=== PATIENT | male | born 1955 | race Caucasian/White ===

== ENCOUNTER 2017-04-22 05:05 | Day surgery (SDC) | payer BC ==
[2017-04-21 12:47] VITALS: BMI 26.4
[2017-04-22 06:30] VITALS: TEMP 98
--- NOTE | 2017-04-22 07:56 | HP ---
Admitting History and Physical - Primary Care Physician PCP: Rosalio Vieira - Admission Chief Complaint: Nasal blockage History of Present Illness: Years of nasal congestion and sinusitis despite many meds and sprays. CT shows pansinusitis and Nasal polyps History Source: Patient, Medical Record Limitations to Obtaining History: No Limitations - Smoking History Smoking history: Current every day smoker Have you smoked in the past 12 months: Yes Aproximately how many cigarettes per day: 20 - Alcohol/Substance Use Hx Alcohol Use: No Home Medications - Allergies Allergies/Adverse Reactions: Allergies Allergy/AdvReac Type Severity Reaction Status Date / Time No Known Allergies Allergy Verified 04/22/17 06:38 - Home Medications Home Medications: Ambulatory Orders Methadone [Dolophine -] 70 mg PO DAILY 04/21/17 Family Disease History - Family Disease History Family Disease History: Heart Disease: Mother, [place]: Father, Sister Physical Examination Vital Signs: Vital Signs Temperature 98.0 F 04/22/17 06:30 Pulse Rate 80 04/22/17 06:30 Respiratory Rate 20 04/22/17 06:30 Blood Pressure 132/85 04/22/17 06:30 O2 Sat by Pulse Oximetry (%) 95 04/22/17 06:31 Constitutional: Yes: Well Nourished Eyes: Yes: WNL HENT: Yes: Other (LARGE nasal polyps) Neck: Yes: Supple Cardiovascular: Yes: WNL Respiratory: Yes: WNL Problem List - Problems (1) Sinusitis Code(s): J32.9 - CHRONIC SINUSITIS, UNSPECIFIED Qualifiers: Sinusitis location: pansinusitis Chronicity: chronic Qualified Code(s): J32.4 - Chronic pansinusitis (2) Nasal polyps Assessment/Plan: sinus surgery Code(s): J33.9 - NASAL POLYP, UNSPECIFIED
[2017-04-22] MEDS ORDERED: PROPOFOL 20 ML ONE ×2 (08:08)
[2017-04-22] MEDS ORDERED: MIDAZOLAM HCL 2 MG/2 ML SINGLE DOSE VIAL ONE (08:08)
[2017-04-22] MEDS ORDERED: ROCURONIUM BROMIDE 50 MG/5 ML VIAL ONE (08:08)
[2017-04-22] MEDS ORDERED: COCAINE HCL 4% TOPICAL SOLUTION 4 ML BOTTLE TP ONE ×2 (08:14→08:38)
[2017-04-22] MEDS ORDERED: LIDOCAINE 1%/EPI 1:100000 (50 ML MULTI DOSE VIAL) ONE (08:18)
[2017-04-22] MEDS ORDERED: ceFAZolin SODIUM 1 GM VIAL ONE (08:38)
[2017-04-22] MEDS ORDERED: DEXAMETHASONE SOD PHOSPHATE 4 MG/1 ML VIAL ONE (08:38)
[2017-04-22] MEDS ORDERED: ceFAZolin SODIUM 1 GM VIAL IVPB ONE (08:40)
[2017-04-22] MEDS ORDERED: ePHEDrine SULFATE 50 MG/1 ML AMPULE ONE (08:53)
[2017-04-22] MEDS ORDERED: oxyCODONE HCL 5 MG TABLET PO PRN (09:22)
[2017-04-22] MEDS ORDERED: IBUPROFEN 800 MG/8 ML IJ IVPB PRN (09:22)
[2017-04-22] MEDS ORDERED: ONDANSETRON 4 MG/2 ML VIAL IVPUSH PRN (09:22)
[2017-04-22] MEDS ORDERED: TRIAMCINOLONE ACET 40MG/1ML VIAL ONE (09:29)
[2017-04-22] MEDS ORDERED: LACTATED RINGERS SOLUTION 1,000 ML IV SCH (09:30)
[2017-04-22] MEDS ORDERED: NEOSTIGMINE METHYLSULFATE 0.5 MG/ML - 10 ML MDV ONE (09:33)
[2017-04-22] MEDS ORDERED: TRIAMCINOLONE ACET 40MG/1ML VIAL NR ONE (09:33)
[2017-04-22] MEDS ORDERED: GLYCOPYRROLATE 0.2 MG/1 ML VIAL ONE (09:33)
[2017-04-22 13:46] VITALS: BP 105/71; PULSE 80
--- NOTE | 2017-04-23 14:55 | PATH ---
Surgical Pathology Report Patient Name: TL CHANG [facility]. Rec. #: [id number] /Age/Gender: 1955 (Age: 61) / M Account: [id number] Location: [facility] SURGICAL Taken: 04/22/2017 Received: 04/22/2017 Reported: 04/23/2017 Physicians: Tal Almonte M.D. Specimen(s) Received A: NASAL POLYP B: SHAVINGS BILATERAL NASAL, ETHMOID & MAXILLARY TISSUE Clinical History Chronic sinusitis, nasal polyps, hypertrophy of turbinates Final Diagnosis A. NASAL POLYP, POLYPECTOMY: CONSISTENT WITH NASAL POLYP. B. BILATERAL NASAL ETHMOID AND MAXILLARY TISSUE, SHAVINGS: FRAGMENTS OF SINONASAL MUCOSA WITH CHRONIC INFLAMMATION AND EDEMA. Electronically Signed Hugo Collado M.D. Gross Description A. Received in formalin labeled "nasal polyp" are 2 hancock, polypoid portions of soft tissue measuring 0.8 x 0.6 x 0.2 cm and 1.0 x 0.5 x 0.3 cm. The specimens are entirely submitted in one cassette. B. Received in formalin labeled "shavings bilateral nasal ethmoid and maxillary tissue" is a 4.0 x 2.7 x 0.3 cm aggregate of hancock-red soft tissue fragments. A digital media representative portion is submitted in one cassette. 04/22/201704/22/2017
--- NOTE | 2017-05-06 19:52 | OP ---
DATE OF OPERATION: 04/22/2017 PREOPERATIVE DIAGNOSES: Chronic sinusitis, nasal polyposis, turbinate hypertrophy and deviated septum. POSTOPERATIVE DIAGNOSES: Chronic sinusitis, nasal polyposis, turbinate hypertrophy and deviated septum. PROCEDURE: Bilateral endoscopic anterior ethmoidectomy, bilateral maxillary antrostomy with tissue removal, frontal sinus balloon turbinate outfracture, sinus navigation. INDICATIONS: This is a patient with very large nasal polyps nearly blocking his complete airway, blocking all his sinuses, refractory to medical treatment. DESCRIPTION OF PROCEDURE: The patient was brought to the operating room and placed under general anesthesia. The nose was injected with 1% lidocaine with 1:100, 000 epinephrine into the polyps, bilateral nasal wall and septum. Cottonoids with 4 % cocaine were placed in both nostrils. A Optireno sinus navigation instrument was calibrated. The polyps obstructed both sides. They were removed with a microdebrider which was guided, starting at the anterior nasal cavity on the left side and working posteriorly into the ethmoid cavity on the left side. In doing so, the marce bullosa on the left side was taken down. The lateral wall was removed. The section into the ethmoid was carried back to the ground lamella. The os were followed back to the choanae and then followed superiorly up into the middle meatus. The polyps were noted in and around the maxillary ostia and coming from the maxillary ostia. The maxillary ostia were widened using the microdebrider. The microdebrider was placed into the maxillary antrum and some polypoid tissue was removed from the maxillary sinus on the left side. Deviation of the septum was most notable inferiorly with a spur to the left, but this did not block the dissection. Then , the microdebrider was used to remove polyps from the right side, following the polyps up into the middle meatus, following the polyps posterior to the choanae and up into the middle meatus posteriorly. The dissection was carried through to the ground lamella on the right side. Also, the maxillary ostia was widened and entered with the microdebrider, removing polypoid tissue from the maxillary antrum. At this point, after removing nearly all visible polyposis, it was noted that the left ethmoid cavity was larger due to the marce. The frontals were cannulated, first on the left, then the right side, with the frontal sinus seeker. A frontal balloon was placed up into the left frontal sinus with Medtronic guidance. It was inflated twice and deflated and removed. The balloon was instilled into the right frontal sinus, dilated twice and then removed. The inferior turbinates were then outfractured with a long nasal speculum. Nasastent packing was placed into the ethmoid cavities on both sides and instilled with saline. The patient was then suctioned, extubated in the operating room and brought to recovery room in stable condition. Jenn [id number] MTDD
== END 2017-04-22 13:05 | disposition home or self-care (01) ==
LOC: JASU-SURG 05:05
PROVIDERS: ATTEND Otolaryngology
PROC: 09BU4ZZ Excision of Right Ethmoid Sinus, Percutaneous Endoscopic Approach (ICD-10-PCS; 2017-04-22)
PROC: 8E09XBG Computer Assisted Procedure of Head and Neck Region, With Computerized Tomography (ICD-10-PCS; 2017-04-22)
PROC: 099Q4ZZ Drainage of Right Maxillary Sinus, Percutaneous Endoscopic Approach (ICD-10-PCS; 2017-04-22)
PROC: 099R4ZZ Drainage of Left Maxillary Sinus, Percutaneous Endoscopic Approach (ICD-10-PCS; 2017-04-22)
PROC: 09SL8ZZ Reposition Nasal Turbinate, Via Natural or Artificial Opening Endoscopic (ICD-10-PCS; 2017-04-22)
PROC: 8E09XBZ Computer Assisted Procedure of Head and Neck Region (ICD-10-PCS; principal; 2017-04-22 08:00)
PROC: 09BV4ZZ Excision of Left Ethmoid Sinus, Percutaneous Endoscopic Approach (ICD-10-PCS; 2017-04-22 08:00)
DX: J32.9 Chronic sinusitis, unspecified (principal); J33.8 Other polyp of sinus; J34.3 Hypertrophy of nasal turbinates; J34.2 Deviated nasal septum
CPT/HCPCS: 88304-TC; 94760

== ENCOUNTER 2017-06-20 07:07 | Observation (INO) | payer BC ==
[2017-06-20 07:13] VITALS: BMI 24.4
--- NOTE | 2017-06-20 07:35 | PDOC ---
History of Present Illness - General History Source: Patient Exam Limitations: No Limitations - History of Present Illness Initial Comments: 06/20/17 07:52 61 year old male with a PMHx of Hepatitis C and PVD presents to the ED with constant chest pain today. Patient reports the pain began around 2 AM and he states it was mild. Around 4 AM, the pain worsened and became severe and constant. Patient reports the pain is worsened on inhalation, when leaning forward, on his side or laying on his stomach. The pain is alleviated when sitting upright or laying on his back. Patient reports the pain does not radiate. Patient reports he has been drinking a lot of soda recently and took a gas relief with no relief. He also reports that he works as a [employer] and believes he overworked himself yesterday. He is a current every day smoker (1 pack/day). He denies SOB, palpitations. He denies fever, chills, nausea, vomiting, diarrhea. He denies recent injuries. He denies prior blood clots. FHx: maternal [place] <Shavonne Tolentino - Last Filed: 06/20/17 11:21> - General History Source: Patient, Spouse Exam Limitations: No Limitations <Kei Yarbrough - Last Filed: 06/20/17 14:18> - General Chief Complaint: Chest Pain Stated Complaint: CHEST PAIN/SOB Time Seen by Provider: 06/20/17 07:18 Past History <Shavonne Tolentino - Last Filed: 06/20/17 11:21> - Past Medical History Anemia: No Asthma: No Cancer: No Cardiac Disorders: No CVA: No COPD: No CHF: No Dementia: No Diabetes: No GI Disorders: No Disorders: No HTN: No Hypercholesterolemia: No Liver Disease: No Seizures: No Thyroid Disease: No Other medical history: edema - Immunization History Immunization Up to Date: Yes - Psycho/Social/Smoking Cessation Hx Anxiety: No Suicidal Ideation: No Smoking Status: Yes Smoking History: Current every day smoker Have you smoked in the past 12 months: Yes Number of Cigarettes Smoked Daily: 20 Information on smoking cessation initiated: No 'Breaking Loose' booklet given: 01/12/15 Hx Alcohol Use: No Drug/Substance Use Hx: No Substance Use Type: None Hx Substance Use Treatment: Yes <Kei Yarbrough - Last Filed: 06/20/17 14:18> - Past Medical History Allergies/Adverse Reactions: Allergies Allergy/AdvReac Type Severity Reaction Status Date / Time No Known Allergies Allergy Verified 06/20/17 07:08 Home Medications: Ambulatory Orders Methadone [Dolophine -] 70 mg PO DAILY 04/21/17 Review of Systems - Review of Systems Able to Perform ROS?: Yes Comments:: 06/20/17 07:52 GENERAL/CONSTITUTIONAL: No fever or chills. No weakness. HEAD, EYES, EARS, NOSE AND THROAT: No change in vision. No ear pain or discharge. No sore throat. CARDIOVASCULAR: (+) chest pain. No shortness of breath. RESPIRATORY: No cough, wheezing, or hemoptysis. GASTROINTESTINAL: No nausea, vomiting, diarrhea or constipation. GENITOURINARY: dysuria, frequency, or change in urination. MUSCULOSKELETAL: No joint or muscle swelling or pain. No neck or back pain. SKIN: No rash NEUROLOGIC: No headache, vertigo, loss of consciousness, or change in strength/ sensation. ENDOCRINE: No increased thirst. No abnormal weight change. HEMATOLOGIC/LYMPHATIC: No anemia, easy bleeding, or history of blood clots. ALLERGIC/IMMUNOLOGIC: No hives or skin allergy. <Shavonne Tolentino - Last Filed: 06/20/17 11:21> *Physical Exam - Vital Signs Last Vital Signs Temp Pulse Resp BP Pulse Ox 99.2 F 87 20 155/94 95 06/20/17 07:08 06/20/17 07:08 06/20/17 07:08 06/20/17 07:08 06/20/17 07:52 - Physical Exam Comments: 06/20/17 07:53 GENERAL: Awake, alert, and fully oriented, in no acute distress HEAD: No signs of trauma EYES: PERRLA, EOMI, sclera anicteric, conjunctiva clear ENT: Auricles normal inspection, hearing grossly normal, nares patent, oropharynx clear without exudates. Moist mucosa NECK: Normal ROM, supple, no lymphadenopathy, JVD, or masses LUNGS: Breath sounds equal, clear to auscultation bilaterally. No wheezes, and no crackles HEART: Regular rate and rhythm, normal S1 and S2, no murmurs, rubs or gallops ABDOMEN: Soft, nontender, normoactive bowel sounds. No guarding, no rebound. No masses EXTREMITIES: Normal range of motion, no edema. No clubbing or cyanosis. No cords, erythema, or tenderness NEUROLOGICAL: Cranial nerves II through XII grossly intact. Normal speech, normal gait SKIN: Warm, Dry, normal turgor, no rashes or lesions noted. <Shavonne Tolentino - Last Filed: 06/20/17 11:21> - Vital Signs Last Vital Signs Temp Pulse Resp BP Pulse Ox 99.2 F 87 20 155/94 93 L 06/20/17 07:08 06/20/17 07:08 06/20/17 07:08 06/20/17 07:08 06/20/17 07:08 <Kei Yarbrough - Last Filed: 06/20/17 14:18> Heart Score/ECG Review - History History: Slightly suspicious - Electrocardiogram EKG: Normal - Age Age: 45-65 - Risk Factors Risk Factors Heart Score: Yes Smoking History, Yes Positive family hx of cardiac disease Based on the list above the patient has:: 1-2 risk factors #1 ECG reviewed & interpreted by me at: 07:15 06/20/17 07:34 NSR 87, no std/peter, normal axis, normal intervals, QTC 469 msec #2 ECG reviewed & interpreted by me at: 12:45 06/20/17 13:01 NSR 61, no std/peter, T wave flat III, QTC 465 msec, normal axis, normal intervals <Kei Yarbrough - Last Filed: 06/20/17 14:18> ED Treatment Course - LABORATORY CBC & Chemistry Diagram: 06/20/17 08:08 06/20/17 08:08 - RADIOLOGY Radiograph Interpretation: 06/20/17 08:45 Chest X-Ray Reported by Dr. Lonny Fowler Impression: New bibasilar atelectatic changes, right greater than left. 06/20/17 11:21 Chest CTA Reported by Dr. Alberto Burnette Impression: No evidence of pulmonary embolism. COPD with bibasilar consolidation /atelectasis. Clinical correlation and folow-up recommended. <Shavonne Tolentino - Last Filed: 06/20/17 11:21> - LABORATORY CBC & Chemistry Diagram: 06/20/17 08:08 06/20/17 08:08 - RADIOLOGY Radiology Studies Ordered: Category Date Time Status CHEST PA & LAT [RAD] Stat Radiology 06/20/17 07:30 Ordered <Kei Yarbrough - Last Filed: 06/20/17 14:18> Medical Decision Making - Medical Decision Making 06/20/17 08:49 A portion of this note was documented by scribe services under my direction. I have reviewed the details of the note, within reason, and agree with the documentation with the following case summary and management plan written by me. Patient treated in the ED. Nursing notes are reviewed and incorporated into the medical decision-making. Vital signs reviewed. Peripheral IV access obtained by the nurse, laboratory studies are drawn and sent, reviewed and interpreted by myself. Vital Signs Temp Pulse Resp BP Pulse Ox 99.2 F 87 20 155/94 95 06/20/17 07:08 06/20/17 07:08 06/20/17 07:08 06/20/17 07:08 06/20/17 07:20 61-year-old male with significant smoking history, reportedly no cardiac history presents with chest pain since 2:00 this morning. Patient states that he woke up with this intermittent waxing and waning sharp midsternal chest pain worsened with movement. Denies shortness of breath. States that the pain persisted today. Denies any heavy foods. States that he is physically active and moving in his job. He is a [employer]. Reports a family history significant for [place] in the mid 60s with his mother. Patient smokes a pack per day. Patient never had a prior cardiac workup. The history is atypical, the patient has significant risk factors. We'll still need to rule out for myocardial infarction. Labs, chest x-ray and reassess. We' ll need to touch base with the harvest contractor in regards for disposition. 06/20/17 14:15 CBC, BMP 06/20/17 08:08 06/20/17 08:08 CMP Sodium 139 mmol/L (136-145) 06/20/17 08:08 Potassium 3.7 mmol/L (3.5-5.1) 06/20/17 08:08 Chloride 102 mmol/L (98-107) 06/20/17 08:08 Carbon Dioxide 28 mmol/L (21-32) 06/20/17 08:08 Anion Gap 9 (8-16) 06/20/17 08:08 BUN 21 mg/dL (7-18) H 06/20/17 08:08 Creatinine 0.8 mg/dL (0.7-1.3) D 06/20/17 08:08 Creat Clearance w eGFR > 60 (>60) 06/20/17 08:08 Random Glucose 109 mg/dL (74-106) H 06/20/17 08:08 Calcium 9.1 mg/dL (8.5-10.1) 06/20/17 08:08 Total Bilirubin 0.6 mg/dL (0.2-1.0) D 06/20/17 08:08 AST 13 U/L (15-37) L D 06/20/17 08:08 ALT 18 U/L (12-78) 06/20/17 08:08 Alkaline Phosphatase 124 U/L (45-117) H D 06/20/17 08:08 Creatine Kinase 149 IU/L (39-308) 06/20/17 12:24 Troponin I < 0.02 ng/ml (0.00-0.05) 06/20/17 12:24 B-Natriuretic Peptide 203.27 pg/ml (5-125) H 06/20/17 08:08 Total Protein 7.6 g/dl (6.4-8.2) 06/20/17 08:08 Albumin 3.6 g/dl (3.4-5.0) 06/20/17 08:08 D-dimer elevated. CT chest shows no PE but COPD. Pt continues to have persistent chest pain. Case discussed with Dr. Valderrama. Requests echo, lipids, TSH. Case discussed with [facility] hospitalist. Tele obs <Kei Yarbrough - Last Filed: 06/20/17 14:18> *DC/Admit/Observation/Transfer - Attestations Scribe Attestion: 06/20/17 07:53 Documentation prepared by Shavonne Tolentino, acting as medical records library professor for Kei Yarbrough MD. <Shavonne Tolentino - Last Filed: 06/20/17 11:21> - Discharge Dispostion Admit: Yes <Kei Yarbrough - Last Filed: 06/20/17 14:18> Diagnosis at time of Disposition: Chest pain Qualifiers: Chest pain type: unspecified Qualified Code(s): R07.9 - Chest pain, unspecified - Discharge Dispostion Condition at time of disposition: Stable - Referrals Referrals: Rosalio Vieira MD [Primary Care Provider] -
[2017-06-20 08:30] LABS: BASOPHIL 0.2 % (0-2.0); EOSINOPHIL 0.3 % (0-4.5); MCH 28.5 pg (25.7-33.7); MCHC 32.8 g/dl (32.0-35.9); MEAN CELL VOLUME 86.9 fl (80-96); MEAN PLT VOLUME 8.6 fl (7.5-11.1); NEUTROPHILS 84.1 % (42.8-82.8); PLATELET COUNT 268 K/MM3 (134-434); RDW 14.3 % (11.9-15.9); WHITE BLOOD COUNT 13.4 K/mm3 (4.0-10.0)
[2017-06-20] MEDS ORDERED: MAG HYDROX/AL HYDROX/SIMETH 30 ML UNIT-DOSE CUP PO ONE (08:46)
[2017-06-20] MEDS ORDERED: FAMOTIDINE 20 MG/50 ML IVPB 50 ML IVPB ONE ×2 (08:46→09:01)
[2017-06-20] MEDS ORDERED: ACETAMINOPHEN 325 MG TABLET (FP) PO ONE (08:46)
[2017-06-20 08:54] LABS: ALBUMIN 3.6 g/dl (3.4-5.0); ANION GAP 9 (8-16); BILIRUBIN,TOTAL 0.6 mg/dL (0.2-1.0); CALCIUM 9.1 mg/dL (8.5-10.1); CO2 28 mmol/L (21-32); CREATININE 0.8 mg/dL (0.7-1.3); GLUCOSE,RANDOM 109 mg/dL (74-106); SGOT/AST 13 U/L (15-37); SGPT/ALT 18 U/L (12-78); TOT PROT 7.6 g/dl (6.4-8.2)
[2017-06-20 08:56] LABS: ALK PHOS 124 U/L (45-117); CPK 147 IU/L (39-308); TROPONIN I < 0.02 ng/ml (0.00-0.05)
[2017-06-20 08:59] LABS: INR 1.12 (0.82-1.09); PROTHROMBIN TIME (PATIENT) 12.3 SEC (9.98-11.88)
[2017-06-20] MEDS ORDERED: ACETAMINOPHEN 325 MG TABLET (FP) ONE (09:01)
[2017-06-20] MEDS ORDERED: MAG HYDROX/AL HYDROX/SIMETH 30 ML UNIT-DOSE CUP ONE (09:01)
[2017-06-20 09:02] LABS: ACTIVATED PTT 33.3 SECONDS (26.9-34.4)
[2017-06-20] MEDS ORDERED: NITROGLYCERIN SUBLINGUAL 1/150 0.4 MG TAB SL ONE (11:37)
[2017-06-20] MEDS ORDERED: KETOROLAC TROMETHAMINE 30 MG/1 ML VIAL IVPUSH ONE (11:37)
[2017-06-20] MEDS ORDERED: ASPIRIN 81 MG CHEWABLE TABLETS PO ONE (12:19)
[2017-06-20 13:11] LABS: TROPONIN I < 0.02 ng/ml (0.00-0.05)
[2017-06-20 13:25] LABS: CPK 149 IU/L (39-308)
[2017-06-20] MEDS ORDERED: ASPIRIN 81 MG CHEWABLE TABLETS ONE (13:40)
[2017-06-20 15:11] LABS: THYROID STIMULATING HORMONE 1.05 uIU/ml (0.358-3.74)
--- NOTE | 2017-06-20 15:18 | CON.CARD ---
Consult Consult Specialty:: cardiology Reason for Consultation:: chest pain; multiple cardiac risks - History of Present Illness Chief Complaint: Pt still has sharp central chest pain when he takes a deep breath. History of Present Illness: 61 year old white male with a PMHx of Hepatitis C and PVD (right ankle trauma years ago, with subsequent chronic ankle swelling), long-term cigarette smoker, COPD, presents to the ED with constant chest pain today. Patient reports the pain began around 2 AM and he states it was mild. Around 4 AM, the pain worsened and became severe and constant. Patient reports the pain central, sharp , repetitive, is worsened on inhalation, when leaning forward, on his side or laying on his stomach. The pain is alleviated when sitting upright or laying on his back. Patient reports the pain does not radiate. Patient reports he has been drinking a lot of soda recently and took a gas pill with no relief. He also reports that he works as a [employer] and believes he overworked himself yesterday. He is a current every day smoker (1 pack/day). He denies SOB, palpitations. He denies fever, chills, nausea, vomiting, diarrhea. He denies recent injuries. He denies prior blood clots. FHx: maternal [place] - History Source History Provided By: Patient, Medical Record Limitations to Obtaining History: No Limitations - Past Medical History Pulmonary: No: Asthma - Alcohol/Substance Use Hx Alcohol Use: No - Smoking History Smoking history: Current every day smoker Have you smoked in the past 12 months: Yes Aproximately how many cigarettes per day: 20 - Social History Usual Living Arrangement: With Spouse Home Medications - Allergies Allergies/Adverse Reactions: Allergies Allergy/AdvReac Type Severity Reaction Status Date / Time No Known Allergies Allergy Verified 06/20/17 07:08 - Home Medications Home Medications: Ambulatory Orders Methadone [Dolophine -] 70 mg PO DAILY 04/21/17 Family Disease History - Family Disease History Family Disease History: Heart Disease: Mother, CA: Father, Sister Review of Systems - Review of Systems Constitutional: reports: No Symptoms Eyes: reports: No Symptoms HENT: reports: No Symptoms Neck: reports: No Symptoms Cardiovascular: reports: No Symptoms Respiratory: reports: No Symptoms Gastrointestinal: reports: No Symptoms Genitourinary: reports: No Symptoms Breasts: reports: No Symptoms Reported Musculoskeletal: reports: No Symptoms Integumentary: reports: No Symptoms Neurological: reports: No Symptoms Endocrine: reports: No Symptoms Hematology/Lymphatic: reports: No Symptoms Psychiatric: reports: No Symptoms - Risk Factors Known Risk Factors: Yes: Age, Gender, Hypercholesterolemia, Smoking Vital Signs: Vital Signs Temperature 98.2 F 06/20/17 13:45 Pulse Rate 68 06/20/17 13:45 Respiratory Rate 18 06/20/17 13:45 Blood Pressure 102/59 06/20/17 13:45 O2 Sat by Pulse Oximetry (%) 98 06/20/17 13:45 Constitutional: Yes: Well Nourished Eyes: Yes: WNL HENT: Yes: WNL Neck: Yes: WNL Respiratory: Yes: WNL Gastrointestinal: Yes: WNL Renal/: Yes: WNL Cardiovascular: Yes: WNL JVD: No Carotid Bruit: No PMI: Non-Displaced Heart Sounds: Yes: S1, S2 Musculoskeletal: Yes: WNL Extremities: Yes: WNL Edema: No Peripheral Pulses WNL: Yes Integumentary: Yes: Tattoos Neurological: Yes: WNL Psychiatric: Yes: WNL - Other Data Labs, Other Data: INR, PTT INR 1.12 (0.82-1.09) 06/20/17 08:08 Echo: Report Reviewed (normal LVEF) Ejection Fraction %: LVEF > or = 40 % Imaging - Results Chest X-ray: Image Reviewed (no acute pathology) EKG: Image Reviewed (normal sinus rhythm) Problem List - Problems (1) Chest pain Assessment/Plan: TNI < 0.02 x 2. EKG: normal sinus rhythm; no acute ST-T changes. LDL cholesterol >100 mg/dL. Plan: ASA F/u on telemetry; serial EKG. Statin. Stress treadmill MIBI (pt has chronic right ankle swelling after trauma, but says he will be able to walk on a treadmill). Code(s): R07.9 - CHEST PAIN, UNSPECIFIED Qualifiers: Chest pain type: unspecified Qualified Code(s): R07.9 - Chest pain, unspecified (2) Methadone dependence Assessment/Plan: has not used heroin in decades. Code(s): F11.20 - OPIOID DEPENDENCE, UNCOMPLICATED (3) Cigarette nicotine dependence Assessment/Plan: nicotine patch. Pt says that, since finding out on this admission he has COPD, he and his are quitting cigarettes. Code(s): F17.210 - NICOTINE DEPENDENCE, CIGARETTES, UNCOMPLICATED (4) Hyperglycemia Assessment/Plan: fasting glucose; HGBA1C. Code(s): R73.9 - HYPERGLYCEMIA, UNSPECIFIED (5) Right ankle swelling Assessment/Plan: hx trauma to ankle; swelling since then. F/u workup. Code(s): M25.471 - EFFUSION, RIGHT ANKLE
[2017-06-20] MEDS ORDERED: KETOROLAC TROMETHAMINE 30 MG/1 ML VIAL IVPUSH PRN (15:58)
[2017-06-20] MEDS ORDERED: PNEUMOC 13-VAL CONJ-DIP CRM/PF 0.5 ML DISP.SYRIN IM ONE (16:10)
--- NOTE | 2017-06-20 16:10 | HP ---
CHIEF COMPLAINT: chest pain PCP:Rosalio Vieira MD HISTORY OF PRESENT ILLNESS: 61 yo M smoker with PMHx of PVD and Hep C (treated with Harvoni) presents with few hour history on chest pain. He states that last night at approx 2am he began to have some substernal dull achy pain. Pain gradually worsened and at 5am it became constant 8/10 substernal sharp stabbing pain that radiated to left shoulder. He states that pain was worse with deep inspiration and relieved somewhat by sitting upright. Pain not related to activity however he did mention that yesterday he did exert himself much more than usual. Pain was not reproducible with palpation and was not associated with diaphoresis, nausea or vomiting. Pain was finally relieved in ED with administration of Toradol. Has never had this type of pain in past. 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 Denies BILLINGS, SOB, palpitations, abd. pain, gerd or recent illness. No fevers, chills or sick contacts. Family history of heart disease in his mother who of [place] at 67. ER course was notable for: (1)Trop (-) x3 (2)EKG was NSR with non specific t wave changes but no ST elevation or depressions. (3)CTA was negative for PE but did show emphysematous changes. Recent Travel:Denies PAST MEDICAL HISTORY:Methadone dependence, PVD, HEP C, COPD PAST SURGICAL HISTORY: None Social History: Smoking:current smoker 25+pack year history Alcohol: Denies Drugs: Methadone dependence. Family History: Allergies No Known Allergies Allergy (Verified 06/20/17 07:08) HOME MEDICATIONS: Home Medications Medication Instructions Recorded Methadone [Dolophine -] 70 mg PO DAILY 04/21/17 REVIEW OF SYSTEMS CONSTITUTIONAL: Absent: fever, chills, diaphoresis, generalized weakness, malaise, loss of appetite, weight change HEENT: Absent: rhinorrhea, nasal congestion, throat pain, throat swelling, difficulty swallowing, mouth swelling, ear pain, eye pain, visual changes CARDIOVASCULAR: chest pain Absent: , syncope, palpitations, irregular heart rate, lightheadedness, peripheral edema RESPIRATORY: Absent: cough, shortness of breath, dyspnea with exertion, orthopnea, wheezing, stridor, hemoptysis GASTROINTESTINAL: Absent: abdominal pain, abdominal distension, nausea, vomiting, diarrhea, constipation, melena, hematochezia GENITOURINARY: Absent: dysuria, frequency, urgency, hesitancy, hematuria, flank pain, genital pain MUSCULOSKELETAL: Absent: myalgia, arthralgia, joint swelling, back pain, neck pain SKIN: Absent: rash, itching, pallor HEMATOLOGIC/IMMUNOLOGIC: Absent: easy bleeding, easy bruising, lymphadenopathy, frequent infections ENDOCRINE: Absent: unexplained weight gain, unexplained weight loss, heat intolerance, cold intolerance NEUROLOGIC: Absent: headache, focal weakness or paresthesias, dizziness, unsteady gait, seizure, mental status changes, bladder or bowel incontinence PSYCHIATRIC: Absent: anxiety, depression, suicidal or homicidal ideation, hallucinations. PHYSICAL EXAMINATION Vital Signs - 24 hr 06/20/17 15:28 Pulse Rate [ 57 L Apical] Blood Pressure 122/77 [Left Arm] O2 Sat by Pulse 96 Oximetry (%) GENERAL: Awake, alert, and fully oriented, in no acute distress. HEAD: Normal with no signs of trauma. EYES: Pupils equal, round and reactive to light, extraocular movements intact, sclera anicteric, conjunctiva clear. No lid lag. EARS, NOSE, THROAT: Ears normal, nares patent, oropharynx clear without exudates. Moist mucous membranes. NECK: Normal range of motion, supple without lymphadenopathy, JVD, or masses. LUNGS: Breath sounds equal, diminished breath sounds at bases bilaterally. No wheezes, and no crackles. No accessory muscle use. HEART: Regular rate and rhythm, normal S1 and S2 without murmur, rub or gallop. ABDOMEN: Soft, nontender, not distended, normoactive bowel sounds, no guarding, no rebound, no masses. No hepatomegaly or splenomegaly. MUSCULOSKELETAL: Normal range of motion at all joints. No bony deformities or tenderness. No CVA tenderness. UPPER EXTREMITIES: 2+ pulses, warm, well-perfused. No cyanosis. No clubbing. No peripheral edema. LOWER EXTREMITIES: 2+ pulses, warm, well-perfused. No calf tenderness. 1+ RLE edema and some erythema NEUROLOGICAL: Cranial nerves II-XII intact. Normal speech. Gait not observed. PSYCHIATRIC: Cooperative. Good eye contact. Appropriate mood and affect. SKIN: Warm, dry, normal turgor, no rashes or lesions noted, normal capillary refill. ASSESSMENT/PLAN: 61 yo M smoker with PMHx of PVD and Hep C (treated with Harvoni) placed on observation to R/O ACS. Problem List - Problem (1) Chest pain Assessment/Plan: * Trend trops * Cardiac monitoring. * Echo shows normal LV size and function with no WMA and no significant valvular pathology * Cardiology consult. * Toradol for pain PRN * Nitrates PRN (2) Methadone dependence Assessment/Plan: * Confirmed Methadone dose with [facility] * Will continue 70mg PO in AM Visit type - Emergency Visit Emergency Visit: Yes ED Registration Date: 06/20/17 Care time: The patient presented to the Emergency Department on the above date and was hospitalized for further evaluation of their emergent condition. - New Patient This patient is new to me today: Yes Date on this admission: 06/20/17 - Critical Care Critical Care patient: No
--- NOTE | 2017-06-20 16:23 | PN ---
Teaching Attending Note Name of Resident: Baljinder Vora ATTENDING PHYSICIAN STATEMENT I saw and evaluated the patient. I reviewed the resident's note and discussed the case with the resident. I agree with the resident's findings and plan as documented. SUBJECTIVE: PATIENT DENIES HAVING FURTHER CHEST PAIN, NO SHORTNESS OF BREATH. No nausea or vomiting. No headache. OBJECTIVE: Vital Signs Temperature 98.8 F 06/20/17 16:02 Pulse Rate 66 06/20/17 16:02 Respiratory Rate 20 06/20/17 16:02 Blood Pressure 147/80 06/20/17 16:02 O2 Sat by Pulse Oximetry (%) 96 06/20/17 16:02 CBCD WBC 13.4 K/mm3 (4.0-10.0) H D 06/20/17 08:08 RBC 4.81 M/mm3 (4.00-5.60) 06/20/17 08:08 Hgb 13.7 GM/dL (11.7-16.9) 06/20/17 08:08 Hct 41.8 % (35.4-49) 06/20/17 08:08 MCV 86.9 fl (80-96) 06/20/17 08:08 MCHC 32.8 g/dl (32.0-35.9) 06/20/17 08:08 RDW 14.3 % (11.9-15.9) 06/20/17 08:08 Plt Count 268 K/MM3 (134-434) 06/20/17 08:08 MPV 8.6 fl (7.5-11.1) 06/20/17 08:08 CMP Sodium 139 mmol/L (136-145) 06/20/17 08:08 Potassium 3.7 mmol/L (3.5-5.1) 06/20/17 08:08 Chloride 102 mmol/L (98-107) 06/20/17 08:08 Carbon Dioxide 28 mmol/L (21-32) 06/20/17 08:08 Anion Gap 9 (8-16) 06/20/17 08:08 BUN 21 mg/dL (7-18) H 06/20/17 08:08 Creatinine 0.8 mg/dL (0.7-1.3) D 06/20/17 08:08 Creat Clearance w eGFR > 60 (>60) 06/20/17 08:08 Random Glucose 109 mg/dL (74-106) H 06/20/17 08:08 Calcium 9.1 mg/dL (8.5-10.1) 06/20/17 08:08 Total Bilirubin 0.6 mg/dL (0.2-1.0) D 06/20/17 08:08 AST 13 U/L (15-37) L D 06/20/17 08:08 ALT 18 U/L (12-78) 06/20/17 08:08 Alkaline Phosphatase 124 U/L (45-117) H D 06/20/17 08:08 Total Protein 7.6 g/dl (6.4-8.2) 06/20/17 08:08 Albumin 3.6 g/dl (3.4-5.0) 06/20/17 08:08 CARDIAC ENZYMES Creatine Kinase 149 IU/L (39-308) 06/20/17 12:24 Troponin I < 0.02 ng/ml (0.00-0.05) 06/20/17 16:00 Current Medications Generic Name Dose Route Start Last Admin Trade Name Freq PRN Reason Stop Dose Admin Heparin Sodium (Porcine) 5,000 unit 06/20/17 22:00 Heparin - SQ BID [facility] Ketorolac Tromethamine 30 mg 06/20/17 15:58 Toradol Injection - IVPUSH 06/25/17 15:57 Q6H PRN PAIN Methadone HCl 70 mg 06/21/17 06:00 Dolophine - PO DAILY@06 [facility] Nicotine 21 mg 06/20/17 18:15 Nicoderm Patch - TD DAILY [facility] Home Medications Medication Instructions Recorded Methadone [Dolophine -] 70 mg PO DAILY 04/21/17 PE: per resident's note ASSESSMENT AND PLAN: 61 yo M smoker with PMHx of Hep C (treated with Harvoni) placed on observation to R/O ACS. #Acute Chest pain r/o Acs ceq6 x3 more sets. EKG, Cardio consult , in tele, Echo shows normal LV size and function with no WMA and no significant valvular pathology. On Aspirin 81mg . Going for MIBI stress test as per cardiology. # Methadone dependence Confirmed Methadone dose with [facility] ;Will continue 70mg PO in AM # Smoking cessation on Nicotine patch # Hx of Hepatitis C treated with Harvoni DVT px: heparin sq
[2017-06-20] MEDS: HEPARIN NA (PORCINE) 5,000 UNITS/ML 1ML VIAL SQ SCH (21:22)
[2017-06-20] MEDS: NICOTINE 21 MG/24 HOURS TOPICAL PATCH TD SCH (21:22)
[2017-06-21] MEDS ORDERED: METHADONE HCL 40 MG DISPERSABLE TABLET PO SCH (06:00)
[2017-06-21] MEDS ORDERED: METHADONE HCL 40 MG DISPERSABLE TABLET ONE (07:26)
[2017-06-21] MEDS ORDERED: METHADONE HCL 10 MG TABLET ONE (07:26)
[2017-06-21] MEDS: METHADONE 40 MG, METHADONE 30 MG PO SCH (07:34)
[2017-06-21 08:04] LABS: BASOPHIL 0.7 % (0-2.0); EOSINOPHIL 0.9 % (0-4.5); MCH 28.6 pg (25.7-33.7); MCHC 32.5 g/dl (32.0-35.9); MEAN CELL VOLUME 87.8 fl (80-96); MEAN PLT VOLUME 9.2 fl (7.5-11.1); NEUTROPHILS 69.1 % (42.8-82.8); PLATELET COUNT 249 K/MM3 (134-434); RDW 14.2 % (11.9-15.9); WHITE BLOOD COUNT 11.1 K/mm3 (4.0-10.0)
--- NOTE | 2017-06-21 08:18 | EKG ---
Test Reason : Blood Pressure : / mmHG Vent. Rate : 087 BPM Atrial Rate : 087 BPM P-R Int : 160 ms QRS Dur : 098 ms QT Int : 390 ms P-R-T Axes : 068 067 044 degrees QTc Int : 469 ms NORMAL SINUS RHYTHM NORMAL ECG NO PREVIOUS ECGS AVAILABLE Confirmed by SACHIN GUERRA, CAITLYN ([id number]) on 06/21/2017 8:17:41 AM Referred By: Confirmed By:CAITLYN STEPHENSON MD
--- NOTE | 2017-06-21 08:18 | EKG ---
Test Reason : Blood Pressure : / mmHG Vent. Rate : 061 BPM Atrial Rate : 061 BPM P-R Int : 172 ms QRS Dur : 100 ms QT Int : 462 ms P-R-T Axes : 066 062 056 degrees QTc Int : 465 ms NORMAL SINUS RHYTHM NORMAL ECG WHEN COMPARED WITH ECG OF 20-JUN-2017 07:14, NO SIGNIFICANT CHANGE WAS FOUND Confirmed by CAITLYN STEPHENSON MD ([id number]) on 06/21/2017 8:17:52 AM Referred By: Confirmed By:CAITLYN STEPHENSON MD
[2017-06-21 08:51] LABS: ANION GAP 6 (8-16); CALCIUM 8.8 mg/dL (8.5-10.1); CO2 31 mmol/L (21-32); GLUCOSE,RANDOM 99 mg/dL (74-106); PHOSPHOROUS 2.4 mg/dL (2.5-4.9); SGOT/AST 11 U/L (15-37)
[2017-06-21 09:00] LABS: ALK PHOS 98 U/L (45-117); BILIRUBIN,TOTAL 0.7 mg/dL (0.2-1.0); CREATININE 0.7 mg/dL (0.7-1.3); MAGNESIUM 2.2 mg/dL (1.8-2.4); SGPT/ALT 12 U/L (12-78); TOT PROT 6.9 g/dl (6.4-8.2)
--- NOTE | 2017-06-21 09:00 | PN ---
Progress Note, Physician History of Present Illness: 61 year old white male with a PMHx of Hepatitis C and PVD (right ankle trauma years ago, with subsequent chronic ankle swelling), long-term cigarette smoker, COPD, presents to the ED with constant chest pain today. Patient reports the pain began around 2 AM and he states it was mild. Around 4 AM, the pain worsened and became severe and constant. Patient reports the pain central, sharp , repetitive, is worsened on inhalation, when leaning forward, on his side or laying on his stomach. The pain is alleviated when sitting upright or laying on his back. Patient reports the pain does not radiate. Patient reports he has been drinking a lot of soda recently and took a gas pill with no relief. He also reports that he works as a [employer] and believes he overworked himself yesterday. He is a current every day smoker (1 pack/day). He denies SOB, palpitations. He denies fever, chills, nausea, vomiting, diarrhea. He denies recent injuries. He denies prior blood clots. FHx: maternal [place] - Current Medication List Current Medications: Active Medications Heparin Sodium (Porcine) (Heparin -) 5,000 unit SQ BID [facility] Last Admin: 06/20/17 21:22 Dose: Not Given Methadone HCl 40 mg/ Methadone (HCl 30 mg) 70 mg PO DAILY@0600 [facility] Last Admin: 06/21/17 07:34 Dose: 70 mg Nicotine (Nicoderm Patch -) 21 mg TD DAILY [facility] Last Admin: 06/20/17 21:22 Dose: 21 mg - Objective Vital Signs: Vital Signs Temperature 98.5 F 06/21/17 02:00 Pulse Rate 67 06/21/17 02:00 Respiratory Rate 16 06/21/17 02:00 Blood Pressure 121/70 06/21/17 02:00 O2 Sat by Pulse Oximetry (%) 96 06/20/17 22:48 Eyes: Yes: WNL, Conjunctiva Clear, EOM Intact HENT: Yes: WNL, Atraumatic, Normocephalic Neck: Yes: WNL, Supple, Trachea Midline Cardiovascular: Yes: WNL, Regular Rate and Rhythm Respiratory: Yes: WNL, Regular, CTA Bilaterally Gastrointestinal: Yes: WNL, Normal Bowel Sounds Genitourinary: Yes: WNL Musculoskeletal: Yes: WNL Extremities: Yes: WNL Edema: No Integumentary: Yes: WNL Neurological: Yes: WNL, Alert, Oriented ...Motor Strength: WNL Psychiatric: Yes: WNL Labs: CBC, BMP 06/21/17 05:55 INR, PTT INR 1.12 (0.82-1.09) 06/20/17 08:08 Assessment/Plan - Problems (1) Chest pain Assessment/Plan: TNI < 0.02 x 2. EKG: normal sinus rhythm; no acute ST-T changes. LDL cholesterol >100 mg/dL. Plan: ASA F/u on telemetry; serial EKG. Statin. Stress treadmill MIBI (pt has chronic right ankle swelling after trauma, but says he will be able to walk on a treadmill). Code(s): R07.9 - CHEST PAIN, UNSPECIFIED Qualifiers: Chest pain type: unspecified Qualified Code(s): R07.9 - Chest pain, unspecified (2) Methadone dependence Assessment/Plan: has not used heroin in decades. Code(s): F11.20 - OPIOID DEPENDENCE, UNCOMPLICATED (3) Cigarette nicotine dependence Assessment/Plan: nicotine patch. Pt says that, since finding out on this admission he has COPD, he and his are quitting cigarettes. Code(s): F17.210 - NICOTINE DEPENDENCE, CIGARETTES, UNCOMPLICATED (4) Hyperglycemia Assessment/Plan: fasting glucose; HGBA1C. Code(s): R73.9 - HYPERGLYCEMIA, UNSPECIFIED (5) Right ankle swelling Assessment/Plan: hx trauma to ankle; swelling since then. F/u workup. Code(s): M25.471 - EFFUSION, RIGHT ANKLE
[2017-06-21] MEDS: NICOTINE 21 MG/24 HOURS TOPICAL PATCH TD SCH (09:35)
[2017-06-21] MEDS: HEPARIN NA (PORCINE) 5,000 UNITS/ML 1ML VIAL SQ SCH ×2 (09:36→21:02)
--- NOTE | 2017-06-21 11:46 | PN ---
Physical Exam: SUBJECTIVE: Patient seen and examined Patient has no further chest pain, feeling better. OBJECTIVE: Vital Signs Temperature 98.5 F 06/21/17 02:00 Pulse Rate 67 06/21/17 02:00 Respiratory Rate 16 06/21/17 02:00 Blood Pressure 121/70 06/21/17 02:00 O2 Sat by Pulse Oximetry (%) 96 06/20/17 22:48 GENERAL: The patient is awake, alert, and fully oriented, in no acute distress. HEAD: Normal with no signs of trauma. EYES: PERRL, extraocular movements intact, sclera anicteric, conjunctiva clear. ENT: Ears normal, oropharynx clear without exudates, moist mucous membranes. NECK: Trachea midline, full range of motion, supple. LUNGS: Breath sounds equal, clear to auscultation bilaterally, no wheezes, no crackles, no accessory muscle use. HEART: Regular rate and rhythm, S1, S2 without murmur, rub or gallop. ABDOMEN: Soft, nontender, nondistended, normoactive bowel sounds, no guarding, no rebound, no hepatosplenomegaly, no masses. EXTREMITIES: 2+ pulses, warm, well-perfused, no edema. NEUROLOGICAL: Cranial nerves II through XII grossly intact. Normal speech, gait not observed. PSYCH: Normal mood, normal affect. SKIN: Warm, dry, normal turgor, no rashes or lesions noted CBCD WBC 11.1 K/mm3 (4.0-10.0) H 06/21/17 05:55 RBC 4.68 M/mm3 (4.00-5.60) 06/21/17 05:55 Hgb 13.4 GM/dL (11.7-16.9) 06/21/17 05:55 Hct 41.0 % (35.4-49) 06/21/17 05:55 MCV 87.8 fl (80-96) 06/21/17 05:55 MCHC 32.5 g/dl (32.0-35.9) 06/21/17 05:55 RDW 14.2 % (11.9-15.9) 06/21/17 05:55 Plt Count 249 K/MM3 (134-434) 06/21/17 05:55 MPV 9.2 fl (7.5-11.1) 06/21/17 05:55 CMP Sodium 139 mmol/L (136-145) 06/21/17 05:55 Potassium 3.8 mmol/L (3.5-5.1) 06/21/17 05:55 Chloride 102 mmol/L (98-107) 06/21/17 05:55 Carbon Dioxide 31 mmol/L (21-32) 06/21/17 05:55 Anion Gap 6 (8-16) L 06/21/17 05:55 BUN 19 mg/dL (7-18) H 06/21/17 05:55 Creatinine 0.7 mg/dL (0.7-1.3) 06/21/17 05:55 Creat Clearance w eGFR > 60 (>60) 06/21/17 05:55 Random Glucose 99 mg/dL (74-106) 06/21/17 05:55 Calcium 8.8 mg/dL (8.5-10.1) 06/21/17 05:55 Total Bilirubin 0.7 mg/dL (0.2-1.0) 06/21/17 05:55 AST 11 U/L (15-37) L 06/21/17 05:55 ALT 12 U/L (12-78) D 06/21/17 05:55 Alkaline Phosphatase 98 U/L (45-117) D 06/21/17 05:55 Total Protein 6.9 g/dl (6.4-8.2) 06/21/17 05:55 Albumin 3.0 g/dl (3.4-5.0) L 06/21/17 05:55 CARDIAC ENZYMES Creatine Kinase 149 IU/L (39-308) 06/20/17 12:24 Troponin I < 0.02 ng/ml (0.00-0.05) 06/20/17 16:00 Active Medications Generic Name Dose Route Start Last Admin Trade Name Freq PRN Reason Stop Dose Admin Heparin Sodium (Porcine) 5,000 unit 06/20/17 22:00 06/21/17 09:36 Heparin - SQ 5,000 unit BID [facility] Administration Methadone HCl 40 mg/ Methadone 70 mg 06/21/17 07:30 06/21/17 07:34 HCl 30 mg PO 70 mg DAILY@0600 [facility] Administration Nicotine 21 mg 06/20/17 18:15 06/21/17 09:35 Nicoderm Patch - TD 21 mg DAILY [facility] Administration ASSESSMENT/PLAN: 61 yo M smoker with PMHx of Hep C (treated with Harvoni) placed on observation to R/O ACS. #Acute Chest pain ,3 sets of troponin is negative . EKG, Cardio consult , in tele, Echo shows normal LV size and function with no WMA and no significant valvular pathology. On Aspirin 81mg . Going for MIBI stress test as per cardiology on Friday. will continue to monitor # Methadone dependence Confirmed Methadone dose with [facility] ;Will continue 70mg PO in AM # Smoking cessation on Nicotine patch , patient states that will quit smoking. # Hx of Hepatitis C treated with Harvoni DVT px: heparin sq Visit type - Emergency Visit Emergency Visit: Yes ED Registration Date: 06/20/17 Care time: The patient presented to the Emergency Department on the above date and was hospitalized for further evaluation of their emergent condition. - New Patient This patient is new to me today: No - Critical Care Critical Care patient: No
[2017-06-21] MEDS: ASPIRIN COATED 81 MG TABLET.EC PO SCH (21:52)
[2017-06-22] MEDS ORDERED: METHADONE HCL 10 MG TABLET ONE (05:22)
[2017-06-22] MEDS ORDERED: METHADONE HCL 40 MG DISPERSABLE TABLET ONE (05:22)
[2017-06-22] MEDS: METHADONE 40 MG, METHADONE 30 MG PO SCH (05:49)
--- NOTE | 2017-06-22 08:49 | PN ---
Progress Note, Physician History of Present Illness: 61 year old white male with a PMHx of Hepatitis C and PVD (right ankle trauma years ago, with subsequent chronic ankle swelling), long-term cigarette smoker, COPD, presents to the ED with constant chest pain today. Patient reports the pain began around 2 AM and he states it was mild. Around 4 AM, the pain worsened and became severe and constant. Patient reports the pain central, sharp , repetitive, is worsened on inhalation, when leaning forward, on his side or laying on his stomach. The pain is alleviated when sitting upright or laying on his back. Patient reports the pain does not radiate. Patient reports he has been drinking a lot of soda recently and took a gas pill with no relief. He also reports that he works as a [employer] and believes he overworked himself yesterday. He is a current every day smoker (1 pack/day). He denies SOB, palpitations. He denies fever, chills, nausea, vomiting, diarrhea. He denies recent injuries. He denies prior blood clots. FHx: maternal [place] - Current Medication List Current Medications: Active Medications Aspirin (Ecotrin -) 81 mg PO DAILY [facility] Last Admin: 06/21/17 21:52 Dose: 81 mg Heparin Sodium (Porcine) (Heparin -) 5,000 unit SQ BID [facility] Last Admin: 06/21/17 21:02 Dose: 5,000 unit Methadone HCl 40 mg/ Methadone (HCl 30 mg) 70 mg PO DAILY@0600 [facility] Last Admin: 06/22/17 05:49 Dose: 70 mg Nicotine (Nicoderm Patch -) 21 mg TD DAILY [facility] Last Admin: 06/21/17 09:35 Dose: 21 mg - Objective Vital Signs: Vital Signs Temperature 97.9 F 06/22/17 05:53 Pulse Rate 63 06/22/17 05:53 Respiratory Rate 16 06/22/17 05:53 Blood Pressure 150/84 06/22/17 05:53 O2 Sat by Pulse Oximetry (%) 96 06/21/17 23:37 Eyes: Yes: WNL, Conjunctiva Clear, EOM Intact HENT: Yes: WNL, Atraumatic, Normocephalic Neck: Yes: WNL, Supple, Trachea Midline Cardiovascular: Yes: WNL, Regular Rate and Rhythm Respiratory: Yes: WNL, Regular, CTA Bilaterally Gastrointestinal: Yes: WNL, Normal Bowel Sounds Genitourinary: Yes: WNL Musculoskeletal: Yes: WNL Extremities: Yes: WNL Edema: No Integumentary: Yes: WNL Neurological: Yes: WNL, Alert, Oriented ...Motor Strength: WNL Psychiatric: Yes: WNL Labs: CBC, BMP 06/21/17 05:55 06/21/17 05:55 INR, PTT INR 1.12 (0.82-1.09) 06/20/17 08:08 Assessment/Plan - Problems (1) Chest pain Assessment/Plan: TNI < 0.02 x 2. EKG: normal sinus rhythm; no acute ST-T changes. LDL cholesterol >100 mg/dL. Plan: ASA F/u on telemetry; serial EKG. Statin. Stress treadmill MIBI (pt has chronic right ankle swelling after trauma, but says he will be able to walk on a treadmill). Code(s): R07.9 - CHEST PAIN, UNSPECIFIED Qualifiers: Chest pain type: unspecified Qualified Code(s): R07.9 - Chest pain, unspecified (2) Methadone dependence Assessment/Plan: has not used heroin in decades. Code(s): F11.20 - OPIOID DEPENDENCE, UNCOMPLICATED (3) Cigarette nicotine dependence Assessment/Plan: nicotine patch. Pt says that, since finding out on this admission he has COPD, he and his are quitting cigarettes. Code(s): F17.210 - NICOTINE DEPENDENCE, CIGARETTES, UNCOMPLICATED (4) Hyperglycemia Assessment/Plan: fasting glucose; HGBA1C. Code(s): R73.9 - HYPERGLYCEMIA, UNSPECIFIED (5) Right ankle swelling Assessment/Plan: hx trauma to ankle; swelling since then. F/u workup. Code(s): M25.471 - EFFUSION, RIGHT ANKLE
[2017-06-22] MEDS: HEPARIN NA (PORCINE) 5,000 UNITS/ML 1ML VIAL SQ SCH ×2 (10:22→23:08)
[2017-06-22] MEDS: ASPIRIN COATED 81 MG TABLET.EC PO SCH (10:22)
[2017-06-22] MEDS: NICOTINE 21 MG/24 HOURS TOPICAL PATCH TD SCH (10:22)
--- NOTE | 2017-06-22 11:54 | PN ---
Physical Exam: SUBJECTIVE: Patient seen and examined at bedside. No acute events overnight. Pt states he feels well today. No complaints at this time. Pt is adamant that he will never smoke again. No headache, cp, sob, fever, chills. OBJECTIVE: Vital Signs Period Temp Pulse Resp BP Sys/Marshall Pulse Ox Last 24 Hr 97.9 F-99.1 F 63-76 16-18 127-150/67-84 96 GENERAL: The patient is awake, alert, and fully oriented, in no acute distress. HEAD: Normal with no signs of trauma. EYES: sclera anicteric, conjunctiva clear. No ptosis. ENT: oropharynx clear without exudates, moist mucous membranes. NECK: Trachea midline, full range of motion, supple. LUNGS: Breath sounds equal, clear to auscultation bilaterally, no wheezes, no crackles, no accessory muscle use. HEART: Regular rate and rhythm, normal S1, S2 without murmur, rub or gallop. ABDOMEN: Soft, nontender, nondistended, normoactive bowel sounds, no guarding, no rebound, no hepatosplenomegaly, no masses. EXTREMITIES: 2+ pulses, warm, well-perfused, no edema. NEUROLOGICAL: Cranial nerves II through XII grossly intact. Normal speech, gait not observed. PSYCH: Normal mood, normal affect. SKIN: Warm, dry, normal turgor, no rashes or lesions noted Active Medications Generic Name Dose Route Start Last Admin Trade Name Freq PRN Reason Stop Dose Admin Aspirin 81 mg 06/21/17 21:15 06/22/17 10:22 Ecotrin - PO 81 mg DAILY [facility] Administration Heparin Sodium (Porcine) 5,000 unit 06/20/17 22:00 06/22/17 10:22 Heparin - SQ 5,000 unit BID [facility] Administration Methadone HCl 40 mg/ Methadone 70 mg 06/21/17 07:30 06/22/17 05:49 HCl 30 mg PO 70 mg DAILY@0600 [facility] Administration Nicotine 21 mg 06/20/17 18:15 06/22/17 10:22 Nicoderm Patch - TD 21 mg DAILY [facility] Administration ASSESSMENT/PLAN: This is a 61y/o M with PMH of PVD and Hep C (treated with Harvoni) placed on observation to R/O ACS. #Chest pain -troponin neg x3 -cardiac catheterization technologist -Echo wnl -Per cards, tele, serial EKG, statin, stress on Mon #Methadone dependence -Confirmed dose with [facility] -70mg PO in am #Smoking cessation -counseled -Nicotine patch #HepC -Chronic on Harvoni #FEN -Not on fluids -lytes wnl -Na controlled diet #PPx -ambulatory #Dispo: Obs to R/o ACS Bobby Hong MD PGY-1 Visit type - Emergency Visit Emergency Visit: No - New Patient This patient is new to me today: No - Critical Care Critical Care patient: No - Discharge Referral Referred to [facility] Med P.C.: No
--- NOTE | 2017-06-22 12:43 | PN ---
Teaching Attending Note Name of Resident: Bobby Hong ATTENDING PHYSICIAN STATEMENT I saw and evaluated the patient. I reviewed the resident's note and discussed the case with the resident. I agree with the resident's findings and plan as documented. SUBJECTIVE: Patient is comfortable.Denies any chest pain or shortness of breath. OBJECTIVE: Vital Signs Temperature 97.9 F 06/22/17 05:53 Pulse Rate 63 06/22/17 05:53 Respiratory Rate 16 06/22/17 05:53 Blood Pressure 150/84 06/22/17 05:53 O2 Sat by Pulse Oximetry (%) 96 06/21/17 23:37 CBCD WBC 11.1 K/mm3 (4.0-10.0) H 06/21/17 05:55 RBC 4.68 M/mm3 (4.00-5.60) 06/21/17 05:55 Hgb 13.4 GM/dL (11.7-16.9) 06/21/17 05:55 Hct 41.0 % (35.4-49) 06/21/17 05:55 MCV 87.8 fl (80-96) 06/21/17 05:55 MCHC 32.5 g/dl (32.0-35.9) 06/21/17 05:55 RDW 14.2 % (11.9-15.9) 06/21/17 05:55 Plt Count 249 K/MM3 (134-434) 06/21/17 05:55 MPV 9.2 fl (7.5-11.1) 06/21/17 05:55 CMP Sodium 139 mmol/L (136-145) 06/21/17 05:55 Potassium 3.8 mmol/L (3.5-5.1) 06/21/17 05:55 Chloride 102 mmol/L (98-107) 06/21/17 05:55 Carbon Dioxide 31 mmol/L (21-32) 06/21/17 05:55 Anion Gap 6 (8-16) L 06/21/17 05:55 BUN 19 mg/dL (7-18) H 06/21/17 05:55 Creatinine 0.7 mg/dL (0.7-1.3) 06/21/17 05:55 Creat Clearance w eGFR > 60 (>60) 06/21/17 05:55 Random Glucose 99 mg/dL (74-106) 06/21/17 05:55 Calcium 8.8 mg/dL (8.5-10.1) 06/21/17 05:55 Total Bilirubin 0.7 mg/dL (0.2-1.0) 06/21/17 05:55 AST 11 U/L (15-37) L 06/21/17 05:55 ALT 12 U/L (12-78) D 06/21/17 05:55 Alkaline Phosphatase 98 U/L (45-117) D 06/21/17 05:55 Total Protein 6.9 g/dl (6.4-8.2) 06/21/17 05:55 Albumin 3.0 g/dl (3.4-5.0) L 06/21/17 05:55 CARDIAC ENZYMES Creatine Kinase 149 IU/L (39-308) 06/20/17 12:24 Troponin I < 0.02 ng/ml (0.00-0.05) 06/20/17 16:00 Current Medications Generic Name Dose Route Start Last Admin Trade Name Radha PRN Reason Stop Dose Admin Aspirin 81 mg 06/21/17 21:15 06/22/17 10:22 Ecotrin - PO 81 mg DAILY DANIELLA Administration Heparin Sodium (Porcine) 5,000 unit 06/20/17 22:00 06/22/17 10:22 Heparin - SQ 5,000 unit BID DANIELLA Administration Methadone HCl 40 mg/ Methadone 70 mg 06/21/17 07:30 06/22/17 05:49 HCl 30 mg PO 70 mg DAILY@0600 DANIELLA Administration Nicotine 21 mg 06/20/17 18:15 06/22/17 10:22 Nicoderm Patch - TD 21 mg DAILY DANIELLA Administration Home Medications Medication Instructions Recorded Methadone [Dolophine -] 70 mg PO DAILY 04/21/17 PE: per resident's note ASSESSMENT AND PLAN: 61 yo M smoker with PMHx of Hep C (treated with Harvoni) placed on observation to R/O ACS. Patient is going for MIBI stress test as per cardiology on Friday #Acute Chest pain ,3 sets of troponin is negative . EKG, Cardio consult , in tele. Echo shows normal LV size and function with no WMA and no significant valvular pathology. On Aspirin 81mg continue, continue to monitor in Tele. # Methadone dependence Confirmed Methadone dose with [place] ;Will continue 70mg PO in AM # Smoking cessation on Nicotine patch , patient states that will quit smoking. # Hx of Hepatitis C treated with Luis Armando DVT px: heparin sq
[2017-06-23] MEDS ORDERED: METHADONE HCL 10 MG TABLET ONE (06:04)
[2017-06-23] MEDS ORDERED: METHADONE HCL 40 MG DISPERSABLE TABLET ONE (06:05)
[2017-06-23] MEDS: METHADONE 40 MG, METHADONE 30 MG PO SCH (06:06)
[2017-06-23 07:20] LABS: BASOPHIL 0.8 % (0-2.0); MCH 28.7 pg (25.7-33.7); MCHC 32.6 g/dl (32.0-35.9); MEAN CELL VOLUME 87.9 fl (80-96); MEAN PLT VOLUME 9.4 fl (7.5-11.1); NEUTROPHILS 61.5 % (42.8-82.8); RDW 14.2 % (11.9-15.9); WHITE BLOOD COUNT 12.2 K/mm3 (4.0-10.0)
[2017-06-23 07:31] LABS: ALBUMIN 3.2 g/dl (3.4-5.0); ANION GAP 6 (8-16); CALCIUM 9.2 mg/dL (8.5-10.1); CO2 30 mmol/L (21-32); CREATININE 0.8 mg/dL (0.7-1.3); GLUCOSE,RANDOM 95 mg/dL (74-106); SGOT/AST 15 U/L (15-37); SGPT/ALT 18 U/L (12-78)
[2017-06-23 07:33] LABS: ALK PHOS 98 U/L (45-117); BILIRUBIN,TOTAL 0.8 mg/dL (0.2-1.0); TOT PROT 7.6 g/dl (6.4-8.2)
[2017-06-23] MEDS: HEPARIN NA (PORCINE) 5,000 UNITS/ML 1ML VIAL SQ SCH ×2 (09:01→22:09)
[2017-06-23] MEDS: NICOTINE 21 MG/24 HOURS TOPICAL PATCH TD SCH (09:01)
[2017-06-23] MEDS: ASPIRIN COATED 81 MG TABLET.EC PO SCH (09:01)
[2017-06-23 10:26] LABS: PLATELET ESTIMATE ADEQUATE (NORMAL)
--- NOTE | 2017-06-23 11:39 | PN ---
Progress Note, Physician History of Present Illness: 61 year old white male with a PMHx of Hepatitis C and PVD (right ankle trauma years ago, with subsequent chronic ankle swelling), long-term cigarette smoker, COPD, presents to the ED with constant chest pain today. Patient reports the pain began around 2 AM and he states it was mild. Around 4 AM, the pain worsened and became severe and constant. Patient reports the pain central, sharp , repetitive, is worsened on inhalation, when leaning forward, on his side or laying on his stomach. The pain is alleviated when sitting upright or laying on his back. Patient reports the pain does not radiate. Patient reports he has been drinking a lot of soda recently and took a gas pill with no relief. He also reports that he works as a [employer] and believes he overworked himself yesterday. He is a current every day smoker (1 pack/day). He denies SOB, palpitations. He denies fever, chills, nausea, vomiting, diarrhea. He denies recent injuries. He denies prior blood clots. FHx: maternal [facility] - Current Medication List Current Medications: Active Medications Aspirin (Ecotrin -) 81 mg PO DAILY [facility] Last Admin: 06/23/17 09:01 Dose: 81 mg Heparin Sodium (Porcine) (Heparin -) 5,000 unit SQ BID [facility] Last Admin: 06/23/17 09:01 Dose: 5,000 unit Methadone HCl 40 mg/ Methadone (HCl 30 mg) 70 mg PO DAILY@0600 [facility] Last Admin: 06/23/17 06:06 Dose: 70 mg Nicotine (Nicoderm Patch -) 21 mg TD DAILY [facility] Last Admin: 06/23/17 09:01 Dose: 21 mg - Objective Vital Signs: Vital Signs Temperature 98 F 06/23/17 10:00 Pulse Rate 84 06/23/17 10:00 Respiratory Rate 18 06/23/17 10:00 Blood Pressure 120/80 06/23/17 10:00 O2 Sat by Pulse Oximetry (%) 98 06/23/17 10:00 Eyes: Yes: WNL, Conjunctiva Clear, EOM Intact HENT: Yes: WNL, Atraumatic, Normocephalic Neck: Yes: WNL, Supple, Trachea Midline Cardiovascular: Yes: WNL, Regular Rate and Rhythm Respiratory: Yes: WNL, Regular, CTA Bilaterally Gastrointestinal: Yes: WNL, Normal Bowel Sounds Genitourinary: Yes: WNL Musculoskeletal: Yes: WNL Extremities: Yes: WNL Edema: No Integumentary: Yes: WNL Neurological: Yes: WNL, Alert, Oriented ...Motor Strength: WNL Psychiatric: Yes: WNL Labs: CBC, BMP 06/23/17 05:35 06/23/17 05:35 INR, PTT INR 1.12 (0.82-1.09) 06/20/17 08:08 Assessment/Plan - Problems (1) Chest pain Assessment/Plan: TNI < 0.02 x 2. EKG: normal sinus rhythm; no acute ST-T changes. LDL cholesterol >100 mg/dL. Plan: ASA F/u on telemetry; serial EKG. Statin. Stress treadmill MIBI pending Code(s): R07.9 - CHEST PAIN, UNSPECIFIED Qualifiers: Chest pain type: unspecified Qualified Code(s): R07.9 - Chest pain, unspecified (2) Methadone dependence Assessment/Plan: has not used heroin in decades. Code(s): F11.20 - OPIOID DEPENDENCE, UNCOMPLICATED (3) Cigarette nicotine dependence Assessment/Plan: nicotine patch. Pt says that, since finding out on this admission he has COPD, he and his are quitting cigarettes. Code(s): F17.210 - NICOTINE DEPENDENCE, CIGARETTES, UNCOMPLICATED (4) Hyperglycemia Assessment/Plan: fasting glucose; HGBA1C. Code(s): R73.9 - HYPERGLYCEMIA, UNSPECIFIED (5) Right ankle swelling Assessment/Plan: hx trauma to ankle; swelling since then. F/u workup. Code(s): M25.471 - EFFUSION, RIGHT ANKLE
--- NOTE | 2017-06-23 14:06 | EKG ---
Test Reason : Blood Pressure : / mmHG Vent. Rate : 073 BPM Atrial Rate : 073 BPM P-R Int : 164 ms QRS Dur : 094 ms QT Int : 396 ms P-R-T Axes : 061 074 055 degrees QTc Int : 436 ms NORMAL SINUS RHYTHM NONSPECIFIC ST AND T WAVE ABNORMALITY ABNORMAL ECG WHEN COMPARED WITH ECG OF 20-JUN-2017 12:43, NO SIGNIFICANT CHANGE WAS FOUND Confirmed by SARY MOURA MD ([id number]) on 06/23/2017 2:06:29 PM Referred By: TL RAMIREZ Confirmed By:SARY MOURA MD
--- NOTE | 2017-06-23 17:50 | PN ---
Teaching Attending Note Name of Resident: Bobby Hong ATTENDING PHYSICIAN STATEMENT I saw and evaluated the patient. I reviewed the resident's note and discussed the case with the resident. I agree with the resident's findings and plan as documented. SUBJECTIVE: Comfortable with no acute distress. OBJECTIVE: Vital Signs Temperature 98 F 06/23/17 10:00 Pulse Rate 84 06/23/17 10:00 Respiratory Rate 18 06/23/17 10:00 Blood Pressure 120/80 06/23/17 10:00 O2 Sat by Pulse Oximetry (%) 98 06/23/17 10:00 CBCD WBC 12.2 K/mm3 (4.0-10.0) H 06/23/17 05:35 RBC 5.05 M/mm3 (4.00-5.60) 06/23/17 05:35 Hgb 14.5 GM/dL (11.7-16.9) 06/23/17 05:35 Hct 44.4 % (35.4-49) 06/23/17 05:35 MCV 87.9 fl (80-96) 06/23/17 05:35 MCHC 32.6 g/dl (32.0-35.9) 06/23/17 05:35 RDW 14.2 % (11.9-15.9) 06/23/17 05:35 Plt Count No Result Required. 06/23/17 05:35 MPV 9.4 fl (7.5-11.1) 06/23/17 05:35 CMP Sodium 137 mmol/L (136-145) 06/23/17 05:35 Potassium 4.3 mmol/L (3.5-5.1) 06/23/17 05:35 Chloride 101 mmol/L (98-107) 06/23/17 05:35 Carbon Dioxide 30 mmol/L (21-32) 06/23/17 05:35 Anion Gap 6 (8-16) L 06/23/17 05:35 BUN 16 mg/dL (7-18) 06/23/17 05:35 Creatinine 0.8 mg/dL (0.7-1.3) 06/23/17 05:35 Creat Clearance w eGFR > 60 (>60) 06/23/17 05:35 Random Glucose 95 mg/dL (74-106) 06/23/17 05:35 Calcium 9.2 mg/dL (8.5-10.1) 06/23/17 05:35 Total Bilirubin 0.8 mg/dL (0.2-1.0) 06/23/17 05:35 AST 15 U/L (15-37) D 06/23/17 05:35 ALT 18 U/L (12-78) D 06/23/17 05:35 Alkaline Phosphatase 98 U/L (45-117) 06/23/17 05:35 Total Protein 7.6 g/dl (6.4-8.2) 06/23/17 05:35 Albumin 3.2 g/dl (3.4-5.0) L 06/23/17 05:35 CARDIAC ENZYMES Creatine Kinase 149 IU/L (39-308) 06/20/17 12:24 Troponin I < 0.02 ng/ml (0.00-0.05) 06/20/17 16:00 Current Medications Generic Name Dose Route Start Last Admin Trade Name Radha PRN Reason Stop Dose Admin Aspirin 81 mg 06/21/17 21:15 06/23/17 09:01 Ecotrin - PO 81 mg DAILY DANIELLA Administration Heparin Sodium (Porcine) 5,000 unit 06/20/17 22:00 06/23/17 09:01 Heparin - SQ 5,000 unit BID DANIELLA Administration Methadone HCl 40 mg/ Methadone 70 mg 06/21/17 07:30 06/23/17 06:06 HCl 30 mg PO 70 mg DAILY@0600 DANIELLA Administration Nicotine 21 mg 06/20/17 18:15 06/23/17 09:01 Nicoderm Patch - TD 21 mg DAILY DANIELLA Administration Home Medications Medication Instructions Recorded RX: Methadone [Dolophine -] 70 mg PO DAILY 04/21/17 Atorvastatin Calcium [Lipitor] 10 mg PO DAILY #20 tablet 06/23/17 RX: Aspirin Coated [Ecotrin -] 81 mg PO DAILY #20 tab 06/23/17 RX: Methadone [Dolophine -] 70 mg PO DAILY@0600 tablet MDD 70 06/23/17 RX: Nicotine Patch [Nicoderm Patch 21 mg TD DAILY patch 06/23/17 -] PE: per resident's note ASSESSMENT AND PLAN: 61 yo M smoker with PMHx of Hep C (treated with Harvoni) placed on observation to R/O ACS. Patient is s/p stress test: Nuclear result Small to moderate zone of inferior reversible defect from base to apex compatible with mild intensity ischemia. [facility]F [facility] #Acute Chest pain resolved ,3 sets of troponin is negative .Cardio consult , in tele. Echo shows normal LV size and function with no WMA and no significant valvular pathology. On Aspirin 81mg continue, continue to monitor in Tele. # Methadone dependence Confirmed Methadone dose with [place] ;Will continue 70mg PO in AM # Smoking cessation on Nicotine patch , patient states that will quit smoking. # Hx of Hepatitis C treated with Harvoni DVT px: heparin sq possible transfer to [facility].in am
--- NOTE | 2017-06-23 18:05 | PN ---
Physical Exam: SUBJECTIVE: Patient seen and examined at bedside. No acute events overnight. Pt states he feels well and at his baseline. ROS negative. OBJECTIVE: Vital Signs Period Temp Pulse Resp BP Sys/Marshall Pulse Ox Last 24 Hr 97.8 F-99.0 F 50-91 18-20 120-133/69-82 95-98 GENERAL: The patient is awake, alert, and fully oriented, in no acute distress. HEAD: Normal with no signs of trauma. EYES: sclera anicteric, conjunctiva clear. No ptosis. ENT: oropharynx clear without exudates, moist mucous membranes. NECK: Trachea midline, full range of motion, supple. LUNGS: Breath sounds equal, clear to auscultation bilaterally, no wheezes, no crackles, no accessory muscle use. HEART: Regular rate and rhythm, normal S1, S2 without murmur, rub or gallop. ABDOMEN: Soft, nontender, nondistended, normoactive bowel sounds, no guarding, no rebound, no hepatosplenomegaly, no masses. EXTREMITIES: 2+ pulses, warm, well-perfused, no edema. Right ankle previous injury NEUROLOGICAL: Cranial nerves II through XII grossly intact. Normal speech, gait not observed. PSYCH: Normal mood, normal affect. SKIN: Warm, dry, normal turgor, no rashes or lesions noted Laboratory Results - last 24 hr 06/23/17 06/23/17 05:35 05:35 WBC 12.2 H RBC 5.05 Hgb 14.5 Hct 44.4 MCV 87.9 MCH 28.7 MCHC 32.6 RDW 14.2 Plt Count No Result Required. MPV 9.4 Neutrophils % 61.5 Lymphocytes % 20.6 Monocytes % 13.1 H Eosinophils % 4.0 D Basophils % 0.8 Platelet Estimate Adequate Platelet Comment Slt plt clumping Sodium 137 Potassium 4.3 Chloride 101 Carbon Dioxide 30 Anion Gap 6 L BUN 16 Creatinine 0.8 Creat Clearance w eGFR > 60 Random Glucose 95 Calcium 9.2 Total Bilirubin 0.8 AST 15 D ALT 18 D Alkaline Phosphatase 98 Total Protein 7.6 Albumin 3.2 L Active Medications Generic Name Dose Route Start Last Admin Trade Name Freq PRN Reason Stop Dose Admin Aspirin 81 mg 06/21/17 21:15 06/23/17 09:01 Ecotrin - PO 81 mg DAILY DANIELLA Administration Heparin Sodium (Porcine) 5,000 unit 08/04/17 22:00 06/23/17 09:01 Heparin - SQ 5,000 unit BID DANIELLA Administration Methadone HCl 40 mg/ Methadone 70 mg 06/21/17 07:30 06/23/17 06:06 HCl 30 mg PO 70 mg DAILY@0600 DANIELLA Administration Nicotine 21 mg 06/20/17 18:15 06/23/17 09:01 Nicoderm Patch - TD 21 mg DAILY DANIELLA Administration ASSESSMENT/PLAN: 61 yo M smoker with PMHx of PVD and Hep C (treated with Harvoni) placed on observation to R/O ACS. #CP -Troponin neg -Cardiac monitoring -Echo shows normal LV size and function with no WMA and no significant valvular pathology -Cardiology consult -Toradol for pain PRN -Nitrates PRN -Stress test shows reversible ischemic change #Methadone dependence -Confirmed Methadone dose with [place] -Will continue 70mg PO in AM #Nicotine dependence -Nicotine patch #Right ankle swelling -prior trauma #FEN -not on fluid -lytes wnl -Na controlled #Dispo - Visit type - Emergency Visit Emergency Visit: No - New Patient This patient is new to me today: No - Critical Care Critical Care patient: No - Discharge Referral Referred to [facility] No
[2017-06-24] MEDS ORDERED: METHADONE HCL 10 MG TABLET ONE (06:17)
[2017-06-24] MEDS ORDERED: METHADONE HCL 40 MG DISPERSABLE TABLET ONE (06:18)
[2017-06-24] MEDS: METHADONE 40 MG, METHADONE 30 MG PO SCH (06:21)
[2017-06-24 09:11] LABS: BASOPHIL 0.6 % (0-2.0); EOSINOPHIL 4.4 % (0-4.5); MCH 29.1 pg (25.7-33.7); MCHC 33.5 g/dl (32.0-35.9); MEAN CELL VOLUME 86.9 fl (80-96); MEAN PLT VOLUME 8.7 fl (7.5-11.1); NEUTROPHILS 68.2 % (42.8-82.8); PLATELET COUNT 296 K/MM3 (134-434); WHITE BLOOD COUNT 10.4 K/mm3 (4.0-10.0)
[2017-06-24] MEDS: NICOTINE 21 MG/24 HOURS TOPICAL PATCH TD SCH (09:24)
[2017-06-24] MEDS: ASPIRIN COATED 81 MG TABLET.EC PO SCH (09:24)
[2017-06-24] MEDS: HEPARIN NA (PORCINE) 5,000 UNITS/ML 1ML VIAL SQ SCH (09:24)
--- NOTE | 2017-06-24 09:27 | PN ---
Progress Note, Physician Chief Complaint: Pt A&Ox3; asymptomatic. He has several questions about what to do to stay healthy. His is at bedside. History of Present Illness: 61 year old white male with a PMHx of Hepatitis C and PVD (right ankle trauma years ago, with subsequent chronic ankle swelling), long-term cigarette smoker, COPD, presents to the ED with constant chest pain today. Patient reports the pain began around 2 AM and he states it was mild. Around 4 AM, the pain worsened and became severe and constant. Patient reports the pain central, sharp , repetitive, is worsened on inhalation, when leaning forward, on his side or laying on his stomach. The pain is alleviated when sitting upright or laying on his back. Patient reports the pain does not radiate. Patient reports he has been drinking a lot of soda recently and took a gas pill with no relief. He also reports that he works as a [employer] and believes he overworked himself yesterday. He is a current every day smoker (1 pack/day). He denies SOB, palpitations. He denies fever, chills, nausea, vomiting, diarrhea. He denies recent injuries. He denies prior blood clots. FHx: maternal ID - Current Medication List Current Medications: Active Medications Aspirin (Ecotrin -) 81 mg PO DAILY [facility] Last Admin: 06/23/17 09:01 Dose: 81 mg Heparin Sodium (Porcine) (Heparin -) 5,000 unit SQ BID [facility] Last Admin: 06/23/17 22:09 Dose: 5,000 unit Methadone HCl 40 mg/ Methadone (HCl 30 mg) 70 mg PO DAILY@0600 [facility] Last Admin: 06/24/17 06:21 Dose: 70 mg Nicotine (Nicoderm Patch -) 21 mg TD DAILY [facility] Last Admin: 06/23/17 09:01 Dose: 21 mg - Objective Vital Signs: Vital Signs Temperature 97.9 F 06/24/17 06:00 Pulse Rate 70 06/24/17 06:00 Respiratory Rate 18 06/24/17 06:00 Blood Pressure 125/56 06/24/17 06:00 O2 Sat by Pulse Oximetry (%) 96 06/24/17 06:00 Constitutional: Yes: Well Nourished, No Distress, Calm Eyes: Yes: WNL HENT: Yes: WNL Neck: Yes: WNL Cardiovascular: Yes: WNL Respiratory: Yes: WNL Gastrointestinal: Yes: WNL ...Rectal Exam: Yes: Deferred Genitourinary: No: Anuria Breast(s): Yes: WNL Musculoskeletal: Yes: WNL Extremities: Yes: WNL Edema: No Peripheral Pulses WNL: Yes Integumentary: Yes: WNL ...Motor Strength: WNL Psychiatric: Yes: WNL Labs: CBC, BMP 06/23/17 05:35 06/23/17 05:35 INR, PTT INR 1.12 (0.82-1.09) 06/20/17 08:08 Abnormal Lab Results 06/23/17 06/24/17 05:35 08:35 WBC 12.2 H 10.4 H Monocytes % 13.1 H 10.5 H - ....Imaging Other: Image Reviewed (telemetry: NSR; one episode of ventricualr triplets.) Problem List - Problems (1) Chest pain Assessment/Plan: Stress MIBI: small to moderate, mildly intense IW abnormality; mildly suboptimal HR achieved. Plan: ASA 81 mg and clpidogrel 75 mgt daily. Nicotine patch. Atorvastatin 20 mg daily. Unable to use metoprolol (sinus bradycardia); consider lisinopril 2.5 mg ( ventricular triplets). For coronary angiogram and cardiac rehabilitation as outpatient. Code(s): R07.9 - CHEST PAIN, UNSPECIFIED Qualifiers: Chest pain type: unspecified Qualified Code(s): R07.9 - Chest pain, unspecified (2) Methadone dependence Assessment/Plan: has not used heroin in decades. Code(s): F11.20 - OPIOID DEPENDENCE, UNCOMPLICATED (3) Cigarette nicotine dependence Code(s): F17.210 - NICOTINE DEPENDENCE, CIGARETTES, UNCOMPLICATED (4) Hyperglycemia Assessment/Plan: fasting glucose; HGBA1C. Code(s): R73.9 - HYPERGLYCEMIA, UNSPECIFIED (5) Right ankle swelling Code(s): M25.471 - EFFUSION, RIGHT ANKLE
[2017-06-24 09:49] VITALS: BP 109/60; PULSE 80; TEMP 98
[2017-06-24] MEDS ORDERED: ATORVASTATIN CA 20 MG TABLET (FP) PO ONE (10:30)
--- NOTE | 2017-06-24 11:08 | DS ---
Physical Exam: SUBJECTIVE: Patient seen and examined at bedside. No acute events overnight. Pt states he feels well and at his baseline. ROS negative. OBJECTIVE: Vital Signs Period Temp Pulse Resp BP Sys/Marshall Pulse Ox Last 24 Hr 97.4 F-98.6 F 42-80 18-20 109-130/56-78 92-96 PHYSICAL EXAM GENERAL: The patient is awake, alert, and fully oriented, in no acute distress. HEAD: Normal with no signs of trauma. EYES: sclera anicteric, conjunctiva clear. No ptosis. ENT: oropharynx clear without exudates, moist mucous membranes. NECK: Trachea midline, full range of motion, supple. LUNGS: Breath sounds equal, clear to auscultation bilaterally, no wheezes, no crackles, no accessory muscle use. HEART: Regular rate and rhythm, normal S1, S2 without murmur, rub or gallop. ABDOMEN: Soft, nontender, nondistended, normoactive bowel sounds, no guarding, no rebound, no hepatosplenomegaly, no masses. EXTREMITIES: 2+ pulses, warm, well-perfused, no edema. Right ankle previous injury NEUROLOGICAL: Cranial nerves II through XII grossly intact. Normal speech, gait not observed. PSYCH: Normal mood, normal affect. SKIN: Warm, dry, normal turgor, no rashes or lesions noted LABS Laboratory Results - last 24 hr 06/24/17 08:35 WBC 10.4 H RBC 4.60 Hgb 13.4 Hct 39.9 MCV 86.9 MCH 29.1 MCHC 33.5 RDW 14.0 Plt Count 296 MPV 8.7 Neutrophils % 68.2 Lymphocytes % 16.3 D Monocytes % 10.5 H Eosinophils % 4.4 Basophils % 0.6 HOSPITAL COURSE: Date of Admission:06/20/17 Date of Discharge: 06/24/17 61 yo M smoker with PMHx of PVD and Hep C (treated with Harvoni) placed on observation to R/O ACS. Pt had EKG neg for STEMI and trop neg x3. Echo showed normal LV size and function with no WMA and no significant valvular pathology. Pt had a stress test which showed reversible ischemic change. Pt will continue workup as outpt. 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 His dose was confirmed with [facility] and was continued at 70mg PO in AM Pt decided with this event that he would stop smoking. He was given a Nicotine patch Pt has skin abnormality of the right ankle due to prior trauma. Minutes to complete discharge: 45 <Bobby Hong - Last Filed: 06/24/17 11:04> Physical Exam: SUBJECTIVE: Patient seen and examined Vital Signs Temperature 98 F 06/24/17 09:46 Pulse Rate 80 06/24/17 09:46 Respiratory Rate 18 06/24/17 09:46 Blood Pressure 109/60 06/24/17 09:46 O2 Sat by Pulse Oximetry (%) 92 L 06/24/17 09:46 CBCD WBC 10.4 K/mm3 (4.0-10.0) H 06/24/17 08:35 RBC 4.60 M/mm3 (4.00-5.60) 06/24/17 08:35 Hgb 13.4 GM/dL (11.7-16.9) 06/24/17 08:35 Hct 39.9 % (35.4-49) 06/24/17 08:35 MCV 86.9 fl (80-96) 06/24/17 08:35 MCHC 33.5 g/dl (32.0-35.9) 06/24/17 08:35 RDW 14.0 % (11.9-15.9) 06/24/17 08:35 Plt Count 296 K/MM3 (134-434) 06/24/17 08:35 MPV 8.7 fl (7.5-11.1) 06/24/17 08:35 CMP Sodium 137 mmol/L (136-145) 06/23/17 05:35 Potassium 4.3 mmol/L (3.5-5.1) 06/23/17 05:35 Chloride 101 mmol/L (98-107) 06/23/17 05:35 Carbon Dioxide 30 mmol/L (21-32) 06/23/17 05:35 Anion Gap 6 (8-16) L 06/23/17 05:35 BUN 16 mg/dL (7-18) 06/23/17 05:35 Creatinine 0.8 mg/dL (0.7-1.3) 06/23/17 05:35 Creat Clearance w eGFR > 60 (>60) 06/23/17 05:35 Random Glucose 95 mg/dL (74-106) 06/23/17 05:35 Calcium 9.2 mg/dL (8.5-10.1) 06/23/17 05:35 Total Bilirubin 0.8 mg/dL (0.2-1.0) 06/23/17 05:35 AST 15 U/L (15-37) D 06/23/17 05:35 ALT 18 U/L (12-78) D 06/23/17 05:35 Alkaline Phosphatase 98 U/L (45-117) 06/23/17 05:35 Total Protein 7.6 g/dl (6.4-8.2) 06/23/17 05:35 Albumin 3.2 g/dl (3.4-5.0) L 06/23/17 05:35 CARDIAC ENZYMES Creatine Kinase 149 IU/L (39-308) 06/20/17 12:24 Troponin I < 0.02 ng/ml (0.00-0.05) 06/20/17 16:00 Home Medications Medication Instructions Recorded Methadone [Dolophine -] 70 mg PO DAILY 04/21/17 Methadone [Dolophine -] 70 mg PO DAILY@0600 tablet MDD 70 06/23/17 Aspirin Coated [Ecotrin -] 81 mg PO DAILY #20 tab 06/24/17 Atorvastatin Calcium [Lipitor] 10 mg PO DAILY #20 tablet 06/24/17 Clopidogrel Bisulfate [Plavix -] 75 mg PO DAILY #30 tablet 06/24/17 Nicotine Patch [Nicoderm Patch -] 21 mg TD DAILY #30 patch 06/24/17 A/P: 61 yo M smoker with PMHx of Hep C (treated with Harvoni) placed on observation to R/O ACS. Patient is s/p stress test: Nuclear result Small to moderate zone of inferior reversible defect from base to apex compatible with mild intensity ischemia. [facility] #Acute Chest pain resolved ,3 sets of troponin is negative .Cardio consult appreciated, as per cardio, patient can be discharge home with follow up visit for possible cardiac cath. Echo shows normal LV size and function with no WMA and no significant valvular pathology. As per associate professor continue : continue Aspirin 81mg ,Add plavix, Nicotine patch . # Methadone dependence Confirmed Methadone dose with [facility] ; continue 70mg daily follow the methadone clinic # Smoking cessation on Nicotine patch continue, will give a prescription for nicotine patch. # Hx of Hepatitis C treated with Harvoni <Enoch Fontanez - Last Filed: 06/24/17 14:30> Discharge Summary Reason For Visit: CHEST PAIN - Home Medications Comprehensive Discharge Medication List: Ambulatory Orders Methadone [Dolophine -] 70 mg PO DAILY 04/21/17 Methadone [Dolophine -] 70 mg PO DAILY@0600 tablet MDD 70 06/23/17 Aspirin Coated [Ecotrin -] 81 mg PO DAILY #20 tab 06/24/17 Atorvastatin Calcium [Lipitor] 10 mg PO DAILY #20 tablet 06/24/17 Clopidogrel Bisulfate [Plavix -] 75 mg PO DAILY #30 tablet 06/24/17 Nicotine Patch [Nicoderm Patch -] 21 mg TD DAILY #30 patch 06/24/17 <Bobby Hong - Last Filed: 06/24/17 11:04> - Home Medications Comprehensive Discharge Medication List: Ambulatory Orders Methadone [Dolophine -] 70 mg PO DAILY 04/21/17 Methadone [Dolophine -] 70 mg PO DAILY@0600 tablet MDD 70 06/23/17 Aspirin Coated [Ecotrin -] 81 mg PO DAILY #20 tab 06/24/17 Atorvastatin Calcium [Lipitor] 10 mg PO DAILY #20 tablet 06/24/17 Clopidogrel Bisulfate [Plavix -] 75 mg PO DAILY #30 tablet 06/24/17 Nicotine Patch [Nicoderm Patch -] 21 mg TD DAILY #30 patch 06/24/17 <Enoch Fontanez - Last Filed: 06/24/17 14:30> Condition: Good - Instructions Diet, Activity, Other Instructions: You need to follow up with the following doctors: -Dr. Vieira, primary care -Dr. Valderrama, cardiology. Please call as soon as possible to make an appointment. You need to take the following medications: -Methadone 70mg daily. follow with your methadone clinic -Nicotine 21mg patch daily -Ecotrin 81 by mouth daily -Lipitor 10mg by mouth daily -Plavix 75mg by mouth daily -Aspirin You are starting a new medication called Lipitor. Make sure you follow up with your primary care doctor and associate professor to make sure your liver function is ok. If you develop new symptoms or if your symptoms get worse, please return to the emergency department. Referrals: Rosalio Vieira MD [Primary Care Provider] - 1 Week Issa Valderrama MD [Staff Physician] - 1 Week Disposition: HOME - Discharge Referral [facility]erred to [facility] No <Bobby Hong - Last Filed: 06/24/17 11:04> This patient is new to me today: No Emergency Visit: Yes ED Registration Date: 06/20/17 Care time: The patient presented to the Emergency Department on the above date and was hospitalized for further evaluation of their emergent condition. Critical Care patient: No <Enoch Fontanez - Last Filed: 06/24/17 14:30>
--- NOTE | 2017-06-24 13:27 | EKG ---
Test Reason : Blood Pressure : / mmHG Vent. Rate : 072 BPM Atrial Rate : 072 BPM P-R Int : 162 ms QRS Dur : 098 ms QT Int : 406 ms P-R-T Axes : 061 072 062 degrees QTc Int : 444 ms NORMAL SINUS RHYTHM ATRIAL ABNORMALITY WHEN COMPARED WITH ECG OF 23-JUN-2017 13:47, NO SIGNIFICANT CHANGE WAS FOUND Confirmed by FRANDY VANG MD ([id number]) on 06/24/2017 1:27:00 PM Referred By: Sofya AGUILA Confirmed By:FRANDY VANG MD
== END 2017-06-24 10:22 | disposition home or self-care (01) ==
LOC: JER 07:07 → JERBED 14:18 → J4W 15:45
PROVIDERS: ADMIT Internal Medicine; ATTEND Internal Medicine
PROC: 3E033GC Introduction of Other Therapeutic Substance into Peripheral Vein, Percutaneous Approach (ICD-10-PCS; principal; 2017-06-20)
PROC: 3E023GC Introduction of Other Therapeutic Substance into Muscle, Percutaneous Approach (ICD-10-PCS; 2017-06-20)
PROC: 3E0333Z Introduction of Anti-inflammatory into Peripheral Vein, Percutaneous Approach (ICD-10-PCS; 2017-06-20)
PROC: 3E0234Z Introduction of Serum, Toxoid and Vaccine into Muscle, Percutaneous Approach (ICD-10-PCS; 2017-06-20)
DX: R07.9 Chest pain, unspecified (principal); F11.20 Opioid dependence, uncomplicated; F17.210 Nicotine dependence, cigarettes, uncomplicated; B18.2 Chronic viral hepatitis C; I73.9 Peripheral vascular disease, unspecified; R73.9 Hyperglycemia, unspecified; M25.471 Effusion, right ankle; J44.9 Chronic obstructive pulmonary disease, unspecified
CPT/HCPCS: 36415; 71020-TC; 71275-TC; 78452-TC; 80053; 80061; 83721; 83735; 83880; 84100; 84443; 84484; 85025; 85379; 85610; 85730; 90670; 93005; 93010; 93017; 93306-TC; 99285-25; A9502; G0378; J1644

== ENCOUNTER 2018-11-20 18:09 | Emergency (ER) | payer BC ==
[2018-11-20 18:12] VITALS: BMI 27.1
[2018-11-20 18:28] VITALS: BP 151/90; PULSE 70; TEMP 98.1
--- NOTE | 2018-11-20 19:41 | PDOC ---
History of Present Illness - General History Source: Patient Exam Limitations: No Limitations <Natasha White - Last Filed: 11/20/18 19:35> - History of Present Illness Initial Comments: 11/20/18 19:42 The patient is a 63 year old male, with a significant past medical history of HTN, HLD, Hepatitis C, and PVD (on baby aspirin and Plavix), who presents to the emergency department with, a laceration to the finger. Patient notes he was attempting to cut sheetrock with a boxcutter when the knife slipped lacerating his left second finger. He is unaware of his last tetanus shot. He denies any recent fevers, chills, headache or dizziness. He denies any recent nausea, vomit, diarrhea or constipation. He denies any recent chest pain or shortness of breath. He denies any recent dysuria, frequency, urgency or hematuria. Allergies: NKDA Past surgical history: None reported. <Venkat Velez - Last Filed: 11/20/18 19:43> - General Chief Complaint: Laceration Stated Complaint: i cut my finger Past History - Past Medical History Anemia: No Asthma: No Cancer: No Cardiac Disorders: No CVA: No COPD: No CHF: No Dementia: No Diabetes: No GI Disorders: No Disorders: No HTN: No Hypercholesterolemia: No Liver Disease: No Seizures: No Thyroid Disease: No - Immunization History Immunization Up to Date: Yes - Suicide/Smoking/Psychosocial Hx Smoking Status: Yes Smoking History: Current every day smoker Have you smoked in the past 12 months: Yes Number of Cigarettes Smoked Daily: 20 Information on smoking cessation initiated: Yes 'Breaking Loose' booklet given: 06/20/17 Hx Alcohol Use: No Drug/Substance Use Hx: No Substance Use Type: Heroin Hx Substance Use Treatment: Yes <Natasha White - Last Filed: 11/20/18 19:35> <Venkat Velez - Last Filed: 11/20/18 19:43> - Past Medical History Allergies/Adverse Reactions: Allergies Allergy/AdvReac Type Severity Reaction Status Date / Time No Known Allergies Allergy Verified 11/20/18 18:09 Home Medications: Ambulatory Orders Methadone [Dolophine -] 70 mg PO DAILY 04/21/17 Methadone [Dolophine -] 70 mg PO DAILY@0600 tablet MDD 70 06/23/17 Aspirin Coated [Ecotrin -] 81 mg PO DAILY #20 tab 06/24/17 Atorvastatin Calcium [Lipitor] 10 mg PO DAILY #20 tablet 06/24/17 Clopidogrel Bisulfate [Plavix -] 75 mg PO DAILY #30 tablet 06/24/17 Nicotine Patch [Nicoderm Patch -] 21 mg TD DAILY #30 patch 06/24/17 Review of Systems - Review of Systems Comments:: 11/20/18 19:43 GENERAL/CONSTITUTIONAL: No fever or chills. No weakness. HEAD, EYES, EARS, NOSE AND THROAT: No change in vision. No ear pain or discharge. No sore throat. CARDIOVASCULAR: No chest pain or shortness of breath. RESPIRATORY: No cough, wheezing, or hemoptysis. GASTROINTESTINAL: No nausea, vomiting, diarrhea or constipation. GENITOURINARY: No dysuria, frequency, or change in urination. MUSCULOSKELETAL: No joint or muscle swelling or pain. No neck or back pain. +SKIN: Laceration to the left 2nd digit. No rash NEUROLOGIC: No headache, vertigo, loss of consciousness, or change in strength/ sensation. ENDOCRINE: No increased thirst. No abnormal weight change. HEMATOLOGIC/LYMPHATIC: No anemia, easy bleeding, or history of blood clots. ALLERGIC/IMMUNOLOGIC: No hives or skin allergy. All Other Systems: Reviewed and Negative <Venkat Velez - Last Filed: 11/20/18 19:43> *Physical Exam - Vital Signs Last Vital Signs Temp Pulse Resp BP Pulse Ox 98.1 F 70 18 151/90 97 11/20/18 18:10 11/20/18 18:10 11/20/18 18:10 11/20/18 18:10 11/20/18 18:10 - Physical Exam Comments: 11/20/18 19:38 awake alert nad lungs clear bilaterally heart rrr no mg. left index finger with avulsion of skin 0.5 cm. bleedign controlled with pressure. no bony or subcut showing. no nail involvement n/v intact. 2 + radial and ulnar pulses. <Natasha White - Last Filed: 11/20/18 19:35> - Vital Signs Last Vital Signs Temp Pulse Resp BP Pulse Ox 98.1 F 70 18 151/90 97 11/20/18 18:10 11/20/18 18:10 11/20/18 18:10 11/20/18 18:10 11/20/18 18:10 <Venkat Velez - Last Filed: 11/20/18 19:43> Moderate Sedation - Procedure Monitoring Vital Signs: Procedure Monitoring Vital Signs Temperature 98.1 F 11/20/18 18:10 Pulse Rate 70 11/20/18 18:10 Respiratory Rate 18 11/20/18 18:10 Blood Pressure 151/90 11/20/18 18:10 O2 Sat by Pulse Oximetry (%) 97 11/20/18 18:10 <Natasha Wihte - Last Filed: 11/20/18 19:35> - Procedure Monitoring Vital Signs: Procedure Monitoring Vital Signs Temperature 98.1 F 11/20/18 18:10 Pulse Rate 70 11/20/18 18:10 Respiratory Rate 18 11/20/18 18:10 Blood Pressure 151/90 11/20/18 18:10 O2 Sat by Pulse Oximetry (%) 97 11/20/18 18:10 <Venkat Velez - Last Filed: 11/20/18 19:43> Medical Decision Making - Medical Decision Making 11/20/18 19:35 63 yo male h/o htn HLD, Hep C , PVD on plavix and asa here s/p laceration to his left index finger while cutting sheet rock. pt states it happened just prior to arrival. applied pressure some bleeding still. no other injuries. knife slipped and cut his finger. unsure of last tetanus. on exam left index finger with 0.5 cm skin avulsion on radial side distal finger pad. bleeding controlled with pressure. n/v intact. no bony effacement. no nail involvement. plan local wound care. pressure. bacitracin tetanus and nonstick dressing. <Natasha White - Last Filed: 11/20/18 19:35> *DC/Admit/Observation/Transfer <Natasha White - Last Filed: 11/20/18 19:35> - Attestations Scribe Attestion: 11/20/18 19:43 Documentation prepared by Venkat Velez, acting as medical supply technician for Natasha White MD. <Venkat Velez - Last Filed: 11/20/18 19:43> Diagnosis at time of Disposition: Laceration - Discharge Dispostion Disposition: HOME Condition at time of disposition: Improved - Patient Instructions Printed Discharge Instructions: Minor Wounds (Alternative Therapy), DI for Open Laceration Additional Instructions: you should apply bacitracin to wound twice daily . use a nonstick dressing. return for redness, swelling or any concerns. you were given a tetanus today and dont need another for 5 years. for rebleeding apply pressure for 10 minutes if wont stop return to ed. for repeat evaluation.
[2018-11-20] MEDS ORDERED: DIPHTH,PERTUSS(ACELL),TET 0.5 ML DISP.SYRIN IM ONE ×2 (19:42→19:46)
== END 2018-11-20 19:56 | disposition home or self-care (01) ==
LOC: FER 18:09
PROC: 3E0234Z Introduction of Serum, Toxoid and Vaccine into Muscle, Percutaneous Approach (ICD-10-PCS; principal; 2018-11-20)
DX: S61.211A Laceration without foreign body of left index finger without damage to nail, initial encounter (principal); W26.0XXA Contact with knife, initial encounter; Y93.89 Activity, other specified; Y92.89 Other specified places as the place of occurrence of the external cause; Y99.0 Civilian activity done for income or pay; I10 Essential (primary) hypertension; E78.5 Hyperlipidemia, unspecified; B19.20 Unspecified viral hepatitis C without hepatic coma; Z79.01 Long term (current) use of anticoagulants; F17.210 Nicotine dependence, cigarettes, uncomplicated
CPT/HCPCS: 90471; 90715; 99282-25